=== PATIENT | female | born 1965 | race Caucasian/White ===

== ENCOUNTER → 2021-02-13 09:00 | Outpatient (BNVA) | payer BC, SELFPAY | PROVIDERS: PCP Family Medicine; Visit Provider Internal Medicine Gastroenterology ==

== ENCOUNTER 2021-04-11 08:27 | Day surgery (SDC) | payer BC, SELFPAY ==
[2021-04-11 08:47] VITALS: BP 102/66; PULSE 87; RESP 16; TEMP 36; O2SAT 99; BMI 27.4
[2021-04-11] MEDS: Lactated Ringers 1,000 ML 100 ML IVCONT (09:00)
--- NOTE | 2021-04-11 09:15 | P.CONAN_ITS ---
[facility] Social History Social History Patient Tobacco Use Status: Never used Tobacco Use of substances other than those prescribed or required for medical reasons: Yes Substance Use Type Other:: CBD/THC Substance Use Frequency: Daily Are you DNR?: No Advance Directives: Yes Advance Directives Information Provided: Yes Advance Directives on File: No Advance Directives Date on File: 04/11/21 Exam Exam Date and Time: April 11, 2021 0915 Height,Weight and Vital Signs: Height 5 ft 3 in Weight 70.307 kg Last Vital Signs Temp 96.8 F 04/11/21 08:47 Pulse 87 04/11/21 08:47 Resp 16 04/11/21 08:47 BP 102/66 04/11/21 08:47 Pulse Ox 99 04/11/21 08:47 Airway Mallampati Class: II TM Dist: >3cm Neck ROM: Full Heart: RRR Lungs: CTA Assessment and Plan Assessment Anesthesia Assessment: Anesthesia Plan Discussed and Chart Reviewed Final Anesthetic Review NPO: Yes (Sip with medicine) ASA Class: II Final Preanesthetic Review: No Changes in Pt Med Stat and Consent Obtain ed/Reviewed Patient Risk: Intermediate Procedure Risk: Intermediate Anesthetic Plan Anesthetic Plan: MAC: Disposition: Standard PACU
--- NOTE | 2021-04-11 09:30 | MHC.SHP ---
Pre-Procedural Eval Section B Chief Complaint: screening Relevant Family History (Specify if Yes): No Relevant Social History: Other (specify) (cbd) Present Medications: see Short Stay Collaborative assessment Medical History: Significant History (lymphocytic colitis, ) History of Previous Operations: No relevant previous surgery Allergies: Allergies Allergy/AdvReac Type Severity Reaction Status Date / Time No Known Allergies Allergy Verified 04/11/21 09:30 Review of Systems Sugical H&P ROS: Negative: Constitution, Cardiovascular, Respiratory, Neurological, Psychiatric, Hem-Onc, Allergic/Immunologic, Gastrointestinal, Genitourinary, Musculoskeletal, Integumentary, Endocrine and Eyes/Ears/Nose/Throat Exam Surgical H&P Exam: Normal: HEENT, Normal: Heart, Normal: Lungs, Normal: Extremities, Normal: Abdomen, Normal: Skin and Normal: Neurological Plan Diagnosis/Plan: Unchanged I have reviewed the history and physical and performed a pertinent physical examination on my patient. No changes have occurred unless specified.
--- NOTE | 2021-04-11 10:04 | PM.OP ---
Brief Operative Note Date of Service: 04/11/21 Pre-op diagnosis: colon screening Post-op diagnosis: same Procedure: see op note Surgeon: Tanner Garrett MD Anesthesia: MAC Was an Database Security Expert used for this Procedure?: No Estimated blood loss (mL): 0 Condition: stable Disposition: PACU
--- NOTE | 2021-04-11 10:04 | W.PM.OPN ---
Operative Note Operative Note Date of Service: 04/11/21 Narrative: Operative Information Procedure Description: Colonoscopy COLONOSCOPY Instrument: Olympus variable stiffness pediatric scope 190L Colonoscopy Monitoring: Vital signs and clinical assessment, continuous EKG monitoring, Pulse oximetry, Carbon Dioxide monitoring and blood pressure monitoring were done throughout the procedure. Colon withdrawal time was 13 minutes. Procedure: The patient was placed in the left lateral decubitis position and pre-procedure medications were administered. After a digital rectal examination of the ano-rectum, the video colonoscope was inserted into the rectum and advanced through the colon to the cecum/TI. The colonoscope was slowly withdrawn in a retrograde panoramic fashion and the colon mucosa was carefully examined including a retroflexed view of the rectum. Findings and interventions are described below. Procedure Difficulty:easy Findings: scattered wide mouthed diverticula in both right and left colon Terminal Ileum-normal Cecum:normal Ascending Colon: normal Transverse Colon -normal Descending Colon:normal Sigmoid Colon: normal Rectum: Retroflexion with small internal hemorrhoids, grade I, 10 mm sessile polyp removed with cold snare Anorectum - normal Colon preparation: [place] Bowel Preparation Scale Right colon; 2 Transverse colon: 1 Left colon; 2 (0 = Unprepared colon segment with mucosa not seen due to solid stool that cannot be cleared. 1 = Portion of mucosa of the colon segment seen, but other areas of the colon segment not well seen due to staining, residual stool and/or opaque liquid. 2 = Minor amount of residual staining, small fragments of stool and/or opaque liquid, but mucosa of colon segment seen well. 3 = Entire mucosa of colon segment seen well with no residual staining, small fragments of stool or opaque liquid) Impression and Post Procedure Diagnosis: polyp internal hemorrhoids diverticular disease Plan: High fiber diet leaflet Avoid straining at stool, epsom salts and sitz bath, anusol supps or cream as needed Repeat Colonoscopy in 5 years or earlier if clinically indicated, next time avoid nuts for 3 days before procedure at least Above findings were reviewed with the patient and relevant handouts were provided if indicated.
[2021-04-11 10:06] VITALS: BP 98/59; PULSE 73; RESP 16; TEMP 36.1; O2SAT 100
[2021-04-11 10:21] VITALS: BP 106/62; PULSE 72; RESP 18; O2SAT 100
== END 2021-04-11 10:50 | disposition home or self-care (01) ==
PROVIDERS: PCP Family Medicine; Visit Provider Internal Medicine Gastroenterology
PROC: 0DJD8ZZ Inspection of Lower Intestinal Tract, Via Natural or Artificial Opening Endoscopic (ICD-10-PCS; CPT 45378; principal; 2021-04-11 08:30)
DX: Z12.11 Encounter for screening for malignant neoplasm of colon (principal); Z83.71 Family history of colonic polyps; D12.8 Benign neoplasm of rectum; K57.30 Diverticulosis of large intestine without perforation or abscess without bleeding; K64.0 First degree hemorrhoids; K52.832 Lymphocytic colitis
CPT/HCPCS: 45385; 88305

== ENCOUNTER → 2021-05-01 09:23 | Outpatient (BNVA) | payer BC, SELFPAY | PROVIDERS: PCP Family Medicine; Visit Provider Internal Medicine Gastroenterology ==

== ENCOUNTER 2022-01-26 14:17 | Outpatient (REF) | payer OTHER, SELFPAY ==
--- NOTE | ~2022-01-26 | XR_ITS ---
EXAMINATION: XR KNEE, LEFT CLINICAL INFORMATION: Left knee pain COMPARISON: None TECHNIQUE: Four views of the left knee. FINDINGS: There is a left knee suprapatellar effusion present. The medial lateral joint space compartments are generally maintained. There is question of some narrowing of the patellofemoral joint with marginal spurring being present. No acute fracture or dislocation is seen. There is a 6 mm calcific density seen about the region of the popliteal fossa which may lie within a popliteal fossa cyst and appears to be superimposed on AP view over the medial joint space. XR/XR knee LT 4V IMPRESSION: No acute fracture or dislocation of the left knee. Suprapatellar effusion. Patellofemoral joint degenerative change. Calcification which may lie within a popliteal fossa cyst.
== END 2022-01-26 14:18 | disposition home or self-care (01) ==
LOC: HO.HMGCX 14:17
PROVIDERS: Visit Provider Physician Assistant
DX: M25.562 Pain in left knee (principal)
CPT/HCPCS: 73564

== ENCOUNTER 2024-01-19 08:44 | Outpatient (AMB) | payer OTHER, SELFPAY ==
--- NOTE | 2024-01-19 08:50 | MHC.OFFVIS ---
Intake Vital Signs 01/19/24 08:52 Height 5 ft 3 in Weight 165 lb 5.547 oz BMI 29.3 BP 99/64 Blood Pressure Location Lt brachial Position Sitting Pulse 75 Intake Visit Reasons: pt req appointment Intake Note: Adriana presents in the office as a requested appt. CC: She states that she is having concerns today. She thought she may have an ulcer but since she has found out that it was gluten effecting her. She wants to know when her next colonoscopy is as well. Allergies No Known Allergies Allergy (Verified 01/19/24 08:52) HPI pt req appointment HPI Details 58 yr old f being seen for f/u RECAP: I had seen her at [facility] where she had been dx with lymphocytic colitis, also treated for SIBO, concern she may have IBS at that time as well. She had also been recommended a FODMAP diet. mother had hx of polyps and she is worried about this colonoscopy--04/2021-- tubular adenoma removed, diverticulosis, INTERIM: She has flare ups of heart burn but since she stopped gluten she has felt an improvement, and no further attacks no dysphagia no chest pain no cough she reports mother had cancerous polyps removed and grand dad had crc so she is concerned about CRC and requesting earlier colonoscopy, she has also noted stool is softer than normal EXAM: GENERAL: The patient is well developed and nontoxic. VITAL SIGNS:see workflow HEENT: Nonicteric sclerae, PERRLA, EOMI. Oropharynx clear. Moist mucous membranes. Conjunctivae appear well perfused. No thyroid mass. CHEST: Chest wall is nontender. HEART: Regular rate and rhythm without murmurs. LUNGS: Clear to auscultation bilaterally. ABDOMEN: Soft, positive bowel sounds, nontender, no organomegaly.no flank tenderness SKIN: No rash, no excessive bruising, petechiae, or purpura. NEUROLOGIC: Cranial nerves II-XII intact without motor/sensory deficit. Psych: normal affect a/P: 1/ Heartburn, better with gluten avoidance 2/ altered bowel habit, Fh of polyps PLAN: 1/ EGD for heartburn, r/o mechanical or other causes of GERD, will send prn PPI 2/ repeat colonoscopy now due to altered bowel habit 3/ declines celiac blood work can do duodenal bx (milan with her hx of lymphocytic colitis) [facility] Medical History Anxiety and depression History of colitis Surgical History H/O colonoscopy Family History Father HTN (hypertension) Diabetes Maternal Grandfather Colon cancer Social History Household Members: None Alcohol intake: current Alcohol intake frequency: does not drink Patient Tobacco Use Status: Never used Tobacco Advance Directives Date on File: 04/11/21 Physical Exam Vital Signs: Last Vital Signs Pulse 75 01/19/24 08:52 BP 99/64 01/19/24 08:52 BMI result Body Mass Index 29.3 Assessment & Plan Assessment & Plan (1) FH: colon polyps: Code(s): Z83.71 - Family history of colonic polyps Plan: a/P: 1/ Heartburn, better with gluten avoidance 2/ altered bowel habit, Fh of polyps PLAN: 1/ EGD for heartburn, r/o mechanical or other causes of GERD, will send prn PPI 2/ repeat colonoscopy now due to altered bowel habit 3/ declines celiac blood work can do duodenal bx (milan with her hx of lymphocytic colitis) (2) Altered bowel habits: Code(s): R19.4 - Change in bowel habit Plan: a/P: 1/ Heartburn, better with gluten avoidance 2/ altered bowel habit, Fh of polyps PLAN: 1/ EGD for heartburn, r/o mechanical or other causes of GERD, will send prn PPI 2/ repeat colonoscopy now due to altered bowel habit 3/ declines celiac blood work can do duodenal bx (milan with her hx of lymphocytic colitis) (3) GERD (gastroesophageal reflux disease): Code(s): K21.9 - Gastro-esophageal reflux disease without esophagitis Plan: a/P: 1/ Heartburn, better with gluten avoidance 2/ altered bowel habit, Fh of polyps PLAN: 1/ EGD for heartburn, r/o mechanical or other causes of GERD, will send prn PPI 2/ repeat colonoscopy now due to altered bowel habit 3/ declines celiac blood work can do duodenal bx (milan with her hx of lymphocytic colitis) Medications: New sodium,potassium,mag sulfates 17.5-3.13-1.6 gram (Suprep Bowel Prep Kit) DILUTE; drink 1/2 at 6-8 pm and half at 11 PM- 1AM 354 mL 0RF Coding Level of Care Code Est Pt Level 3 (61603) Diagnoses FH: colon polyps Z83.71 Altered bowel habits R19.4 GERD (gastroesophageal reflux disease) K21.9
[2024-01-19 08:52] VITALS: BP 99/64; PULSE 75; BMI 29.3
== END 2024-01-19 09:15 | disposition home or self-care (01) ==
PROVIDERS: PCP Family Medicine; Visit Provider Internal Medicine Gastroenterology
DX: R19.4 Change in bowel habit (principal); Z83.719 Family history of colon polyps, unspecified; K21.9 Gastro-esophageal reflux disease without esophagitis
CPT/HCPCS: 99213

== ENCOUNTER → 2024-01-19 08:44 | Outpatient (BNVA) | payer OTHER, SELFPAY | PROVIDERS: PCP Family Medicine; Visit Provider Internal Medicine Gastroenterology ==

== ENCOUNTER 2024-06-30 13:25 | Outpatient (REF) | payer OTHER, SELFPAY ==
--- NOTE | ~2024-06-30 | XR_ITS ---
EXAMINATION: XR KNEE, LEFT CLINICAL INFORMATION: Left knee pain. COMPARISON: None available. TECHNIQUE: Three views of the left knee. FINDINGS: No fracture or malalignment. Moderate patellofemoral compartment osteoarthritis is characterized by joint space narrowing, marginal osteophytes, and articular sclerosis. There is degenerative remodeling of the proximal margin of the lateral trochlear facet. More mild osteoarthritis in the medial and lateral compartments. Small joint effusion. No acute soft tissue findings. XR/XR knee LT 3V IMPRESSION: 1. Moderate patellofemoral compartment osteoarthritis. More mild osteoarthritis in the medial and lateral compartments. 2. Small joint effusion. Electronically signed by: Blake Alaniz MD 07/23/2024 10:55 PM EDT
== END 2024-06-30 13:26 | disposition home or self-care (01) ==
LOC: HO.HOSX 13:25
PROVIDERS: Visit Provider Orthopaedic Surgery
DX: M25.562 Pain in left knee (principal); M17.12 Unilateral primary osteoarthritis, left knee
CPT/HCPCS: 20610; 73562; J1010

== ENCOUNTER 2024-06-30 13:45 | Outpatient (AMB) | payer OTHER, SELFPAY ==
--- NOTE | 2024-06-30 13:59 | MHC.OFFVIS ---
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 The patient describes her pain as sharp in nature. Her pain has gotten worse over the last few years in spite of continued non operative treatments. The patient states that she has gotten a cortisone injection every 3 months into her left knee over the last 2 years. The most recent injection gave her only temporary relief. She has not had a viscosupplementation injection. She has failed the last 3 months of conservative treatment including a home exercise program, cortisone injections, topical cream, Tylenol and anti-inflammatory medicines. At this point the patient's left knee pain is interfering with her activities of daily living and her ability to sleep well through the night. The patient wishes to hold off on surgery for as long as possible. Allergies No Known Allergies Allergy (Verified 06/30/24 14:09) Medication List - Last Reconciled 06/30/24 by Francesco Sullivan MD alprazolam 0.5 mg PO BEDTIME PRN bupropion HCl XL 150 mg PO DAILY estradiol 1 patch transdermal QWEEK levothyroxine 25 mcg PO QAM sodium,potassium,mag sulfates 17.5-3.13-1.6 gram (Suprep Bowel Prep Kit) DILUTE; drink 1/2 at 6-8 pm and half at 11 PM- 1AM [facility] Medical History Anxiety and depression History of colitis Surgical History H/O colonoscopy Family History Father HTN (hypertension) Diabetes Maternal Grandfather Colon cancer Social History (Updated 06/30/24 @ 14:05 by LUIS Ochoa) Household Members: None Alcohol intake: current Alcohol intake frequency: does not drink Patient Tobacco Use Status: Never used Tobacco Advance Directives Date on File: 04/11/21 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 Const Other: Well-nourished well-developed very friendly female awake alert and oriented x3 in no acute distress Extrem Other: Bilateral lower extremity examination shows good capillary refill, no skin lesions noted, normal sensation light touch Left knee examination shows a mild effusion, palpable crepitus with range of motion, pain with range of motion, range of motion from -3 degrees to 115 degrees, no instability Office Procedures Joint Injection/Aspiration Joint Injection/Aspiration Primary Site: left knee Prep: site was prepped using aseptic technique Injected: 40 mg of, DepoMedrol and 1% plain lidocaine Procedure: The patient tolerated the procedure well Coding - Large joint Procedure code (CPT) selection complete Results Reviewed Results Reviewed: X-rays of the patient's left knee show moderate to severe joint space narrowing most significant in the patellofemoral joint, subchondral sclerosis, no acute bony abnormalities Assessment & Plan Assessment & Plan (1) Osteoarthritis of left knee: Code(s): M17.12 - Unilateral primary osteoarthritis, left knee Category: Medical Plan Ms. Bright presents with progressively worsening left knee pain due to osteoarthritis. The risks and benefits of a cortisone injection were discussed at length with the patient. The patient wished to proceed. She tolerated the injection well. Because the patient's recent cortisone injections gave her only temporary relief I will see whether not her insurance company will cover a viscosupplementation injection for her left knee. I will see her back in 3 months' time. Feel free to call me at any time should questions regarding her orthopedic management arise. Thank you very much for asking me to see this very friendly patient. I spent 21 minutes in reviewing the patient's records and imaging studies, seeing the patient and documenting in the medical record. Orders: Orders XR knee LT 3V 06/30/24 M25.562 - Pain in left knee AMB Joint Injection/Aspiration 06/30/24 M17.12 - Unilateral primary osteoarthritis, left knee Coding Level of Care Code New Pt Level 3 (56177) Diagnoses Osteoarthritis of left knee M17.12 CPT Codes Coding - Large joint: 23813 - Large joint ([id number])
== END 2024-06-30 14:42 | disposition home or self-care (01) ==
PROVIDERS: PCP Family Medicine; Visit Provider Orthopaedic Surgery
DX: M17.12 Unilateral primary osteoarthritis, left knee (principal)
CPT/HCPCS: 20610; 99203

== ENCOUNTER 2024-08-25 08:40 | Day surgery (SDC) | payer OTHER, SELFPAY ==
[2024-08-20 14:31] VITALS: BMI 29.2
--- NOTE | 2024-08-25 09:35 | MHC.SHP ---
Pre-Procedural Eval Section A - 24 Hr Update-Section A only Date of Service: 08/25/24 Section B - Complete if H&P > 30 days Chief Complaint: GERD and colon screening Details of Present Illness: Maternal Grandfather Colon cance Relevant Family History (Specify if Yes): Yes Relevant Social History: None Present Medications: see Short Stay Collaborative assessment Medical History: Significant History (Hypothyroid Osteoarthritis GERD (gastroesophageal reflux disease) Anxiety and depression History of colitis) History of Previous Operations: Relevant previous surgery/procedure and date(s) (H/O colonoscopy) Allergies: Allergies Allergy/AdvReac Type Severity Reaction Status Date / Time No Known Allergies Allergy Verified 06/30/24 14:09 Review of Systems Sugical H&P ROS: Negative: Constitution, Cardiovascular, Respiratory, Neurological, Psychiatric, Hem-Onc, Allergic/Immunologic, Gastrointestinal, Genitourinary, Musculoskeletal, Integumentary, Endocrine and Eyes/Ears/Nose/Throat Exam Surgical H&P Exam: Normal: HEENT, Normal: Heart, Normal: Lungs, Normal: Extremities, Normal: Abdomen, Normal: Skin and Normal: Neurological Plan Diagnosis/Plan: Unchanged I have reviewed the history and physical and performed a pertinent physical examination on my patient. No changes have occurred unless specified. Time Spent With Patient Time: Total time managing care of this patient today ____ minutes.
--- NOTE | 2024-08-25 10:01 | HO.ANESPROP2 ---
HPI - Anesthesia Eval Consult details Narrative: endo and colon PMFSH Active Problems Active Problems: All Active Problems Osteoarthritis of left knee (Acute) Left knee pain (Acute) GERD (gastroesophageal reflux disease) (Acute) Altered bowel habits (Acute) FH: colon polyps (Acute) Past Medical History Medical History Hypothyroid Osteoarthritis GERD (gastroesophageal reflux disease) Anxiety and depression History of colitis Family History Family History Father HTN (hypertension) Diabetes Maternal Grandfather Colon cancer Family history of problems with anesthesia: No Surgical History Surgical History H/O colonoscopy History of Problems with Anesthesia: No Social History Social History Household Members: None Alcohol intake: current Alcohol intake frequency: does not drink Patient Tobacco Use Status: Never used Tobacco Advance Directives: No Advance Directives Information Provided: Yes Advance Directives Date on File: 04/11/21 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 Allergies Allergy/AdvReac Type Severity Reaction Status Date / Time No Known Allergies Allergy Verified 06/30/24 14:09 Home Medications ?Medication ?Instructions ?Recorded ?Confirmed ?Last Taken ?Type alprazolam 0.5 mg tablet 0.5 mg PO BEDTIME PRN Sleep 02/13/21 04/04/21 Unknown History estradiol 0.0375 mg/24 hr weekly 1 patch transdermal QWEEK 01/19/24 06/30/24 Unknown History transdermal patch bupropion HCl 150 mg 24 hr tablet, 150 mg PO DAILY 06/30/24 06/30/24 Unknown History extended release levothyroxine 25 mcg tablet 25 mcg PO QAM 06/30/24 06/30/24 Unknown History Exam Height,Weight and Vital Signs: Height 5 ft 3 in Weight 74.843 kg Airway Mallampati Class: II TM Dist: >3cm Neck ROM: Full Heart: rrr Lungs: cta Assessment and Plan Assessment Anesthesia Assessment: Anesthesia Plan Discussed Final Anesthetic Review Family History of Problems with Anesthesia: No History of Problems with Anesthesia: No NPO: Yes ASA Class: II Final Preanesthetic Review: No Changes in Pt Med Stat, Meds/Allgs Chart Reviewed, Consent Obtained/Reviewed and Anes Risks/Benef Reviewed Patient Risk: Low Procedure Risk: Low Anesthetic Plan Anesthetic Plan: MAC: Disposition: Standard PACU
[2024-08-25 10:02] VITALS: BP 105/56; PULSE 84; RESP 18; TEMP 37; O2SAT 96; BMI 28.3
--- NOTE | 2024-08-25 11:00 | HO.OPN-COLON ---
Colonoscopy Operative Note Operative Note Date of Service: 08/25/24 Narrative: Operative Information Procedure Description: EGD, Colonoscopy Indication: GERD, screening Anesthesia: MAC FLEXIBLE TRANSORAL UPPER GASTROINTESTINAL ENDOSCOPY AND COLONOSCOPY PROCEDURE NOTE UPPER ENDOSCOPY Consent: Indications for the procedure and potential complications of bleeding, perforation, reaction to medications and missed diagnosis were discussed with the patient and informed consent was obtained. Instrument: Olympus GIF H 190 J mid size upper endoscope Monitoring: Vital signs and clinical assessment, continuous EKG monitoring, Pulse oximetry, Carbon Dioxide monitoring and blood pressure monitoring were done throughout the procedure. Procedure: The patient was placed in the left lateral decubitis position and pre-procedure medications were administered and a bite block was placed. The endoscope was inserted into the mouth and advanced under direct vision to the third part of duodenum. A careful inspection was made as the upper endoscope was withdrawn including a retroflexed examination of the proximal stomach; Findings and interventions are described below. Findings: Larynx:normal Esophagus: GE junction at 38 cm, diaphragm hiatus at 38 cm, mild esophagitis at GEJ, bx taken from here and from distal and proximal esophagus Stomach: Normal mucosa. Biopsies were obtained. Grade 2 flap valve on retroflexed examination of the cardia. Duodenum: bulbar duodenitis and granularity, bx taken Intervention: Biopsies as noted above, COLONOSCOPY Instrument: Olympus variable stiffness pediatric scope 190L Colonoscopy Monitoring: Vital signs and clinical assessment, continuous EKG monitoring, Pulse oximetry, Carbon Dioxide monitoring and blood pressure monitoring were done throughout the procedure. Colon withdrawal time was 8 minutes. Procedure: The patient was placed in the left lateral decubitis position and pre-procedure medications were administered. After a digital rectal examination of the ano-rectum, the video colonoscope was inserted into the rectum and advanced through the colon to the cecum/TI. The colonoscope was slowly withdrawn in a retrograde panoramic fashion and the colon mucosa was carefully examined including a retroflexed view of the rectum. Findings and interventions are described below. Procedure Difficulty:moderate Findings: Terminal Ileum-normal, bx taken Cecum:normal Ascending Colon: granular mucosa, bx taken, few scattered tics noted, 4-6 mm sessile polyp removed with cold snare Transverse Colon -normal Descending Colon:normal Sigmoid Colon: mild diverticulosis , random bx taken Rectum: Retroflexion with small internal hemorrhoids, grade I Anorectum - normal Colon preparation: [place] Bowel Preparation Scale Right colon; 3 Transverse colon: 3 Left colon; 3 (0 = Unprepared colon segment with mucosa not seen due to solid stool that cannot be cleared. 1 = Portion of mucosa of the colon segment seen, but other areas of the colon segment not well seen due to staining, residual stool and/or opaque liquid. 2 = Minor amount of residual staining, small fragments of stool and/or opaque liquid, but mucosa of colon segment seen well. 3 = Entire mucosa of colon segment seen well with no residual staining, small fragments of stool or opaque liquid) Impression and Post Procedure Diagnosis: Endoscopy Findings: duodenitis mild esophagitis Colonoscopy Findings: diverticulosis colon polyp internal hemorrhoids Plan: Await Pathology results Repeat Colonoscopy in 5-6 years due to FH of colonic polyps High fiber diet leaflet avoid straining at stool, epsom salts and sitz bath, anusol supps or cream Above findings were reviewed with the patient and relevant handouts were provided if indicated.
[2024-08-25 11:28] VITALS: BP 91/61; PULSE 79; RESP 16; TEMP 36.1; O2SAT 99
[2024-08-25 11:44] VITALS: BP 111/68; PULSE 80; RESP 17; TEMP 36.7; O2SAT 99
== END 2024-08-25 12:04 | disposition home or self-care (01) ==
PROVIDERS: PCP Nurse Practitioner Family; Visit Provider Internal Medicine Gastroenterology
PROC: (CPT 45385; principal; 2024-08-25 10:50)
DX: Z12.11 Encounter for screening for malignant neoplasm of colon (principal); Z83.719 Family history of colon polyps, unspecified; K63.5 Polyp of colon; K57.30 Diverticulosis of large intestine without perforation or abscess without bleeding; K64.0 First degree hemorrhoids; K21.9 Gastro-esophageal reflux disease without esophagitis; K20.80 Other esophagitis without bleeding; K29.80 Duodenitis without bleeding; Z87.19 Personal history of other diseases of the digestive system; K44.9 Diaphragmatic hernia without obstruction or gangrene; E03.9 Hypothyroidism, unspecified; F41.8 Other specified anxiety disorders; Z79.899 Other long term (current) drug therapy
CPT/HCPCS: 45385; 45380; 43239; 88305; 88313; 88342; J1100; J1596; J2003; J2704

== ENCOUNTER → 2024-08-25 08:40 | Outpatient (BNV) | payer OTHER, SELFPAY | PROVIDERS: PCP Nurse Practitioner Family; Visit Provider Internal Medicine Gastroenterology | DX: Z12.11 Encounter for screening for malignant neoplasm of colon (principal); K57.90 Diverticulosis of intestine, part unspecified, without perforation or abscess without bleeding; K63.5 Polyp of colon; K64.0 First degree hemorrhoids; K21.00 Gastro-esophageal reflux disease with esophagitis, without bleeding; K29.80 Duodenitis without bleeding | CPT/HCPCS: 43239; 45385 ==

== ENCOUNTER 2024-10-05 15:03 | Outpatient (AMB) | payer OTHER, SELFPAY ==
--- NOTE | 2024-10-05 15:27 | A.OFFVIS_ITS ---
Vital Signs 10/05/24 15:34 Height 5 ft 3 in Intake Visit Reasons: Euflexxa left knee #1 Intake Note: Adriana is a 59 year old female who presents with complaints of progressively worsening left knee pain. She describes her pain as sharp in nature. She has had cortisone injections in the past which gave her minimal relief. She has done physical therapy exercises which aggravated her pain. She has also tried Tylenol and anti-inflammatory medicines which gave her minimal relief. She wishes to hold off on surgery for as long as possible. Allergies No Known Allergies Allergy (Verified 10/05/24 15:34) Medication List - Last Reconciled 10/06/24 by Francesco Sullivan MD alprazolam 0.5 mg PO BEDTIME PRN bupropion HCl XL 150 mg PO DAILY estradiol 1 patch transdermal QWEEK levothyroxine 25 mcg PO QAM sodium,potassium,mag sulfates 17.5-3.13-1.6 gram (Suprep Bowel Prep Kit) DILUTE; drink 1/2 at 6-8 pm and half at 11 PM- 1AM [facility] Medical History Hypothyroid Osteoarthritis GERD (gastroesophageal reflux disease) Anxiety and depression History of colitis Surgical History H/O colonoscopy Family History Father HTN (hypertension) Diabetes Maternal Grandfather Colon cancer Social History Household Members: None Are you a primary health care / medical job titles to a significant other at home: No Do you presently have visiting nurse or other home services: No Alcohol intake: current Alcohol intake frequency: holidays/special occasions only Patient Tobacco Use Status: Never used Tobacco Advance Directives Date on File: 04/11/21 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 Const Other: Well-nourished well-developed very friendly female awake alert and oriented x3 in no acute distress Extrem Other: Bilateral lower extremity examination shows good capillary refill, no skin lesions noted, normal sensation light touch Left knee examination shows a mild effusion, palpable crepitus with range of motion, pain with range of motion, no instability Office Procedures AMB Joint Injection/Aspiration Joint Injection/Aspiration Primary Site: left knee Prep: site was prepped using aseptic technique Injected: 20 mg of (Euflexxa viscosupplementation) and 1% plain lidocaine Procedure: The patient tolerated the procedure well Coding 56947 - Large joint Procedure code (CPT) selection complete Results Reviewed Results Reviewed: X-rays of the patient's left knee show joint space narrowing, subchondral sclerosis, no acute bony abnormalities Assessment & Plan Assessment & Plan (1) Osteoarthritis of left knee: Code(s): M17.12 - Unilateral primary osteoarthritis, left knee Category: Medical Plan Ms. Bright presents with left knee pain due to osteoarthritis. The risks and benefits of a series of Euflexxa viscosupplementation injections were discussed at length with the patient. The patient wished to proceed. She tolerated the 1st injection well. Prior to the injection I aspirated 2 cc of clear fluid from her knee. She will continue with her activity modifications. She will follow up next week as scheduled. Feel free to call me at any time should questions regarding her orthopedic management arise. I spent 21 minutes in reviewing the patient's records and imaging studies, seeing the patient and documenting in the medical record. Orders: Orders AMB Joint Injection/Aspiration 10/05/24 M17.12 - Unilateral primary osteoarthritis, left knee Coding Level of Care Code Est Pt Level 3 (75044) Complex EM visit Add On G2211 Diagnoses Osteoarthritis of left knee M17.12 CPT Codes Coding - 14698 Large joint: 36534 - Large joint ([id number])
== END 2024-10-05 15:55 | disposition home or self-care (01) ==
PROVIDERS: PCP Family Medicine; Visit Provider Orthopaedic Surgery
DX: M17.12 Unilateral primary osteoarthritis, left knee (principal)
CPT/HCPCS: 20610; 99213

== ENCOUNTER → 2024-10-05 15:03 | Outpatient (BNVA) | payer OTHER, SELFPAY | PROVIDERS: PCP Family Medicine; Visit Provider Orthopaedic Surgery | DX: M17.12 Unilateral primary osteoarthritis, left knee (principal) | CPT/HCPCS: 20610; J2003; J7323 ==

== ENCOUNTER 2024-10-12 14:59 | Outpatient (AMB) | payer OTHER, SELFPAY ==
--- NOTE | 2024-10-12 15:08 | A.OFFVIS_ITS ---
Vital Signs 10/12/24 15:11 Height 5 ft 3 in Weight 160 lb BMI 28.3 Intake Visit Reasons: Euflexxa left knee #2 Intake Note: Adriana is a 59 year old female who presents for follow-up of her left knee pain. She states that she got mild relief from the 1st Euflexxa injection that she was given at her last visit. She continues with her activity modifications. Allergies No Known Allergies Allergy (Verified 10/12/24 15:11) Medication List - Last Reconciled 10/13/24 by Francesco Sullivan MD alprazolam 0.5 mg PO BEDTIME PRN bupropion HCl XL 150 mg PO DAILY estradiol 1 patch transdermal QWEEK levothyroxine 25 mcg PO QAM sodium,potassium,mag sulfates 17.5-3.13-1.6 gram (Suprep Bowel Prep Kit) DILUTE; drink 1/2 at 6-8 pm and half at 11 PM- 1AM [facility] Medical History Hypothyroid Osteoarthritis GERD (gastroesophageal reflux disease) Anxiety and depression History of colitis Surgical History H/O colonoscopy Family History Father HTN (hypertension) Diabetes Maternal Grandfather Colon cancer Social History Household Members: None Are you a primary hospice care transitions coordinator to a significant other at home: No Do you presently have visiting nurse or other home services: No Alcohol intake: current Alcohol intake frequency: holidays/special occasions only Patient Tobacco Use Status: Never used Tobacco Advance Directives Date on File: 04/11/21 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 Vital Signs: BMI result Body Mass Index 28.3 Extrem Other: Left knee examination shows a minimal effusion, palpable crepitus with range of motion, pain with range of motion, no instability Office Procedures AMB Joint Injection/Aspiration Joint Injection/Aspiration Primary Site: left knee Prep: site was prepped using aseptic technique Injected: 20 mg of (Euflexxa viscosupplementation) and 1% plain lidocaine Procedure: The patient tolerated the procedure well Coding 46721 - Large joint Procedure code (CPT) selection complete Results Reviewed Results Reviewed: X-rays of the patient's left knee taken previously show joint space narrowing, subchondral sclerosis, no acute bony abnormalities Assessment & Plan Assessment & Plan (1) Osteoarthritis of left knee: Code(s): M17.12 - Unilateral primary osteoarthritis, left knee Category: Medical Plan Ms. Bright presents with left knee pain due to osteoarthritis. The risks and benefits of the 2nd Euflexxa viscosupplementation injection were discussed at length with the patient. The patient wished to proceed. She tolerated the injection well. Prior to the injection I aspirated 3 cc of clear fluid from her left knee. The patient will follow up next week as scheduled. Feel free to call me at any time should questions regarding her orthopedic management arise. Orders: Orders AMB Joint Injection/Aspiration 10/12/24 M17.12 - Unilateral primary osteoarthritis, left knee Coding Level of Care Code Procedure Only Diagnoses Osteoarthritis of left knee M17.12 CPT Codes Coding - 19357 Large joint: 34665 - Large joint ([id number])
[2024-10-12 15:11] VITALS: BMI 28.3
== END 2024-10-12 15:44 | disposition home or self-care (01) ==
PROVIDERS: PCP Nurse Practitioner Family; Visit Provider Orthopaedic Surgery
DX: M17.12 Unilateral primary osteoarthritis, left knee (principal)
CPT/HCPCS: 20610

== ENCOUNTER → 2024-10-12 14:59 | Outpatient (BNVA) | payer OTHER, SELFPAY | PROVIDERS: PCP Nurse Practitioner Family; Visit Provider Orthopaedic Surgery | DX: M17.12 Unilateral primary osteoarthritis, left knee (principal) | CPT/HCPCS: 20610; J2003; J7323 ==

== ENCOUNTER 2024-10-20 15:00 | Outpatient (AMB) | payer OTHER, SELFPAY ==
--- NOTE | 2024-10-20 15:05 | A.OFFVIS_ITS ---
Vital Signs 10/20/24 15:10 Height 5 ft 3 in Weight 160 lb BMI 28.3 Intake Visit Reasons: Euflexxa left knee #3 Intake Note: Adriana is a 59 year old female who presents for follow-up of her left knee pain. She states that she has gotten mild relief from the 1st 2 Euflexxa injections. She states that her left knee still feels ?stiff?. Allergies No Known Allergies Allergy (Verified 10/20/24 15:10) Medication List - Last Reconciled 10/20/24 by Francesco Sullivan MD alprazolam 0.5 mg PO BEDTIME PRN bupropion HCl XL 150 mg PO DAILY estradiol 1 patch transdermal QWEEK levothyroxine 25 mcg PO QAM sodium,potassium,mag sulfates 17.5-3.13-1.6 gram (Suprep Bowel Prep Kit) DILUTE; drink 1/2 at 6-8 pm and half at 11 PM- 1AM [facility] Medical History Hypothyroid Osteoarthritis GERD (gastroesophageal reflux disease) Anxiety and depression History of colitis Surgical History H/O colonoscopy Family History Father HTN (hypertension) Diabetes Maternal Grandfather Colon cancer Social History Household Members: None Are you a primary medicare coordinator to a significant other at home: No Do you presently have visiting nurse or other home services: No Alcohol intake: current Alcohol intake frequency: holidays/special occasions only Patient Tobacco Use Status: Never used Tobacco Advance Directives Date on File: 04/11/21 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 Bright presents with left knee pain due to degenerative joint disease. The risks and benefits of a 3rd Euflexxa viscosupplementation injection were discussed at length with the patient. The patient wished to proceed. She tolerated the injection well. She will continue with her activity modifications. She will contact me prior to her follow-up appointment in 3 months should any questions or concerns arise. Feel free to call me at any time should questions regarding orthopedic management arise. Orders: Orders AMB Joint Injection/Aspiration Today M17.12 - Unilateral primary osteoarthritis, left knee Coding Level of Care Code Procedure Only Diagnoses Osteoarthritis of left knee M17.12
[2024-10-20 15:10] VITALS: BMI 28.3
== END 2024-10-20 15:33 | disposition home or self-care (01) ==
PROVIDERS: PCP Nurse Practitioner Family; Visit Provider Orthopaedic Surgery
DX: M17.12 Unilateral primary osteoarthritis, left knee (principal)
CPT/HCPCS: 20610

== ENCOUNTER → 2024-10-20 15:00 | Outpatient (BNVA) | payer OTHER, SELFPAY | PROVIDERS: PCP Nurse Practitioner Family; Visit Provider Orthopaedic Surgery | DX: M17.12 Unilateral primary osteoarthritis, left knee (principal) | CPT/HCPCS: 20610; J2003; J7323 ==

== ENCOUNTER 2025-01-18 15:02 | Outpatient (AMB) | payer OTHER, SELFPAY ==
--- NOTE | 2025-01-18 15:13 | A.OFFVIS_ITS ---
Vital Signs 01/18/25 15:18 Height 5 ft 3 in Weight 160 lb BMI 28.3 Intake Visit Reasons: Left knee pain Intake Note: Adriana is a 59 year old female who presents with complaints of progressively worsening left knee pain. She describes her pain as sharp in nature. Her pain has gotten worse over the last few months in spite of continued non operative treatments. She has had viscosupplementation injections which gave her fairly good relief. She wishes to hold off on surgery for as long as possible. She has tried Tylenol and anti-inflammatory medicines which gave her minimal relief. She has had cortisone injections which gave her mild relief. Allergies No Known Allergies Allergy (Verified 01/18/25 15:17) Medication List - Last Reconciled 01/18/25 by Francesco Sullivan MD alprazolam 0.5 mg PO BEDTIME PRN bupropion HCl XL 150 mg PO DAILY estradiol 1 patch transdermal QWEEK levothyroxine 25 mcg PO QAM sodium,potassium,mag sulfates 17.5-3.13-1.6 gram (Suprep Bowel Prep Kit) DILUTE; drink 1/2 at 6-8 pm and half at 11 PM- 1AM [facility] Medical History Hypothyroid Osteoarthritis GERD (gastroesophageal reflux disease) Anxiety and depression History of colitis Surgical History H/O colonoscopy Family History Father HTN (hypertension) Diabetes Maternal Grandfather Colon cancer Social History Household Members: None Are you a primary patient centered care specialist to a significant other at home: No Do you presently have visiting nurse or other home services: No Alcohol intake: current Alcohol intake frequency: holidays/special occasions only Patient Tobacco Use Status: Never used Tobacco Advance Directives Date on File: 04/11/21 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 Vital Signs: BMI result Body Mass Index 28.3 Const Other: Well-nourished well-developed very friendly female awake alert and oriented x3 in no acute distress Extrem Other: Bilateral lower extremity examination shows good capillary refill, no skin lesions noted, normal sensation light touch Left knee examination shows a minimal effusion, palpable crepitus with range of motion, pain with range of motion, no instability Office Procedures AMB Joint Injection/Aspiration Joint Injection/Aspiration Primary Site: left knee Prep: site was prepped using aseptic technique Injected: 40 mg of, DepoMedrol and 1% plain lidocaine Procedure: The patient tolerated the procedure well Coding - Large joint Procedure code (CPT) selection complete Results Reviewed Results Reviewed: X-rays of the patient's left knee show joint space narrowing, subchondral sclerosis, no acute abnormalities Assessment & Plan Assessment & Plan (1) Osteoarthritis of left knee: Code(s): M17.12 - Unilateral primary osteoarthritis, left knee Category: Medical (2) Left knee pain: Code(s): M25.562 - Pain in left knee Category: Medical Plan Ms. Bright presents with left knee pain due to osteoarthritis. The risks and benefits of a left knee cortisone injection were discussed at length with the patient. The patient wished to proceed. She tolerated the injection well. If she does not get lasting relief from the cortisone injection therapy I will see whether or not her insurance company will cover a another series of Euflexxa viscosupplementation injections. I will see her back at that time. Feel free to call me at any time should questions regarding her orthopedic management arise. I spent 21 minutes in reviewing the patient's records and imaging studies, seeing the patient and documenting in the medical record. Orders: Orders AMB Joint Injection/Aspiration Today M17.12 - Unilateral primary osteoarthritis, left knee Coding Level of Care Code Est Pt Level 3 (20827) Complex EM visit Add On G2211 Diagnoses Osteoarthritis of left knee M17.12 Left knee pain M25.562 CPT Codes Coding - Large joint: 57370 - Large joint ([id number])
[2025-01-18 15:18] VITALS: BMI 28.3
--- OUTSIDE RECORDS SUMMARY | 2025-01-18 18:23 | XMS_ITS | Patient Health Record ---
Author Organization [facility] Address [address] [place] [address] Care Team Providers Care Bond Underwriter Name Role Phone NO PCP, NONE Primary Care Provider Unavailabl e REASON FOR REFERRAL No Information MEDICATIONS Medication SIG (Take, Route, Frequency, Duration) Notes Start Date End Date Status None as reported by patient/historian Active SOCIAL HISTORY Tobacco Use: Social History Observation Description Date Details (start date - stop date) Never Smoker NA - NA Sex Assigned At : Social History Observation Description Sex Assigned At Unknown Tobacco Use/Smoking Question Answer Notes Are you a nonsmoker * PLAN OF TREATMENT No Information Insurance Providers Payer Name Payer Address Payer Phone Subscriber Number Group Number Insured Name Patient Relationship to Insured Coverage Start Date Coverage End Date [employer] [address] [place] [phone] [id number] BroderickAdriana Self - patient is the insured MEDICAL (GENERAL) HISTORY Medical History History ICD Code History of : No Chronic health problems* Surgical History Surgery Date(Month/Year) Hospitalization History Reason Date(Month/Year)
== END 2025-01-18 15:37 | disposition home or self-care (01) ==
PROVIDERS: PCP Nurse Practitioner Family; Visit Provider Orthopaedic Surgery
DX: M17.12 Unilateral primary osteoarthritis, left knee (principal)
CPT/HCPCS: 20610; 99213

== ENCOUNTER → 2025-01-18 15:07 | Outpatient (BNVA) | payer OTHER, SELFPAY | PROVIDERS: PCP Nurse Practitioner Family; Visit Provider Orthopaedic Surgery | DX: M17.12 Unilateral primary osteoarthritis, left knee (principal) | CPT/HCPCS: 20610; J1010; J2003 ==

== ENCOUNTER 2025-04-12 15:00 | Outpatient (AMB) | payer OTHER, SELFPAY ==
--- NOTE | 2025-04-12 15:06 | MHC.OFFVIS ---
Intake Visit Reasons: INJ-LT knee Euflexxa #1 Intake Note: Adriana is a 59 year old female who presents today for her first dose of left knee Euflexxa. She describes her left knee pain as sharp in nature. She has tried Tylenol and anti-inflammatory medicines which gave her minimal relief. She has also done physical therapy exercises which aggravated her pain. She wishes to hold off on surgery if at all possible. Allergies No Known Allergies Allergy (Verified 04/12/25 15:12) Medication List - Last Reconciled 04/12/25 by Francesco Sullivan MD alprazolam 0.5 mg PO BEDTIME PRN bupropion HCl XL 150 mg PO DAILY estradiol 1 patch transdermal QWEEK levothyroxine 25 mcg PO QAM [facility] Medical History Hypothyroid Osteoarthritis GERD (gastroesophageal reflux disease) Anxiety and depression History of colitis Surgical History H/O colonoscopy Family History Father HTN (hypertension) Diabetes Maternal Grandfather Colon cancer Social History Household Members: None Are you a primary student career development specialist to a significant other at home: No Do you presently have visiting nurse or other home services: No Alcohol intake: current Alcohol intake frequency: holidays/special occasions only Patient Tobacco Use Status: Never used Tobacco Advance Directives Date on File: 04/11/21 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 Const Other: Well-nourished well-developed very friendly female awake alert and oriented x3 in no acute distress Extrem Other: Bilateral lower extremity examination shows good capillary refill, no skin lesions noted, normal sensation light touch Left knee examination shows a minimal effusion, palpable crepitus with range of motion, pain with range of motion, no instability Office Procedures AMB Joint Injection/Aspiration Joint Injection/Aspiration Primary Site: left knee Prep: site was prepped using aseptic technique Injected: 20 mg of (Euflexxa viscosupplementation) and 1% plain lidocaine Procedure: The patient tolerated the procedure well Coding 72934 - Large joint Procedure code (CPT) selection complete Results Reviewed Results Reviewed: X-rays of the patient's left knee taken previously show joint space narrowing, subchondral sclerosis, no acute bony abnormalities Assessment & Plan Assessment & Plan (1) Osteoarthritis of left knee: Code(s): M17.12 - Unilateral primary osteoarthritis, left knee Category: Medical Plan Ms. Bright presents with left knee pain due to osteoarthritis. The risks and benefits of a series of 3 Euflexxa viscosupplementation injections were discussed at length with the patient. The patient wished to proceed. She tolerated the 1st injection well. She will follow up next week as scheduled for her 2nd injection. Feel free to call me at any time should questions regarding her orthopedic management arise. I spent 22 minutes in reviewing the patient's records and imaging studies, seeing the patient and documenting in the medical record. Orders: Orders AMB Joint Injection/Aspiration Today M17.12 - Unilateral primary osteoarthritis, left knee Coding Level of Care Code Est Pt Level 3 (07863) Complex EM visit Add On G2211 Diagnoses Osteoarthritis of left knee M17.12 CPT Codes Coding - 46947 Large joint: 68983 - Large joint ([id number])
--- OUTSIDE RECORDS SUMMARY | 2025-04-12 16:40 | XMS_ITS | Continuity of Care Document ---
Author Organization [employer] [facility] Address [address] [address] Insurance Providers Payer Plan Claims Address Claims Phone Policy Number Group Number Relation Employer Guarantor Name Guarantor Guarantor Address Guarantor Phone [employer] [address] [address], [place] [id number] Self Adriana Kaila [address] [place] [id number] Problems Condition ICD9 code ICD10 code SNOMED code Start Date End Date S tatus Encounter for screening for other metabolic disorders Z13.228 Results No Results Allergies, adverse reactions, alerts No known allergies and adverse reactions Medications No administered medications reported Vital Signs No vital signs reported Social History No smoking Hx information available
== END 2025-04-12 15:40 | disposition home or self-care (01) ==
LOC: HO.HOS 15:01
PROVIDERS: PCP Nurse Practitioner Family; Visit Provider Orthopaedic Surgery
DX: M17.12 Unilateral primary osteoarthritis, left knee (principal)
CPT/HCPCS: 20610; 99213

== ENCOUNTER → 2025-04-12 15:00 | Outpatient (BNVA) | payer OTHER, SELFPAY | PROVIDERS: PCP Nurse Practitioner Family; Visit Provider Orthopaedic Surgery | DX: M17.12 Unilateral primary osteoarthritis, left knee (principal) | CPT/HCPCS: 20610; J2003; J7323 ==

== ENCOUNTER 2025-04-20 15:02 | Outpatient (AMB) | payer OTHER, SELFPAY ==
[2025-04-20 15:09] VITALS: BMI 28.3
--- NOTE | 2025-04-20 15:09 | MHC.OFFVIS ---
Vital Signs 04/20/25 15:09 Height 5 ft 3 in Weight 160 lb BMI 28.3 Intake Visit Reasons: INJ-LT knee Euflexxa #2 Intake Note: Adriana is a 59 year old female who presents today for her second dose of left knee Euflexxa injections. The patient states that she got mild relief from the 1st injection. Allergies No Known Allergies Allergy (Verified 04/20/25 15:09) Medication List - Last Reconciled 04/20/25 by Francesco Sullivan MD alprazolam 0.5 mg PO BEDTIME PRN bupropion HCl XL 150 mg PO DAILY estradiol 1 patch transdermal QWEEK [facility] History Hypothyroid Osteoarthritis GERD (gastroesophageal reflux disease) Anxiety and depression History of colitis Surgical History H/O colonoscopy Family History Father HTN (hypertension) Diabetes Maternal Grandfather Colon cancer Social History Household Members: None Are you a primary pet care assistant to a significant other at home: No Do you presently have visiting nurse or other home services: No Alcohol intake: current Alcohol intake frequency: holidays/special occasions only Patient Tobacco Use Status: Never used Tobacco Advance Directives Date on File: 04/11/21 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 Vital 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: BMI result Body Mass Index 28.3 Extrem Other: Left knee examination shows a mild effusion, palpable crepitus with range of motion, pain with range of motion, no instability Office Procedures AMB Joint Injection/Aspiration Joint Injection/Aspiration Primary Site: left knee Prep: site was prepped using aseptic technique Injected: 20 mg of (Euflexxa viscosupplementation) and 1% plain lidocaine Procedure: The patient tolerated the procedure well Coding 02001 - Large joint Procedure code (CPT) selection complete Results Reviewed Results Reviewed: X-rays of the patient's left knee taken previously show joint space narrowing, subchondral sclerosis, no acute bony abnormalities Assessment & Plan Assessment & Plan (1) Osteoarthritis of left knee: Code(s): M17.12 - Unilateral primary osteoarthritis, left knee Category: Medical Plan Ms. Bright presents with left knee pain due to osteoarthritis. The risks and benefits of a 2nd Euflexxa injection were discussed at length with the patient. The patient wished to proceed. She tolerated the injection well. She will continue with her home exercise program. She will follow up for her 3rd injection as scheduled. Feel free to call me at any time should questions regarding her orthopedic management arise. Orders: Orders AMB Joint Injection/Aspiration Today M17.12 - Unilateral primary osteoarthritis, left knee Coding Level of Care Code Procedure Only Diagnoses Osteoarthritis of left knee M17.12 CPT Codes Coding - 53753 Large joint: 62970 - Large joint ([id number])
--- OUTSIDE RECORDS SUMMARY | 2025-04-20 17:19 | XMS_ITS | Continuity of Care Document ---
Author Organization [email or web address] Address [address] [address] Insurance Providers Payer Plan Claims Address Claims Phone Policy Number Group Number Relation Employer Guarantor Name Guarantor Guarantor Address Guarantor Phone [employer] [id number] , [place] [address] tel:[phone] Problems Condition ICD9 code ICD10 code SNOMED code Start Date End Date S tatus Encounter for screening for other metabolic disorders Z13.228 Results No Results Allergies, adverse reactions, alerts No known allergies and adverse reactions Medications No administered medications reported Vital Signs No vital signs reported Social History No smoking Hx information available
== END 2025-04-20 15:37 | disposition home or self-care (01) ==
LOC: HO.HOS 15:03
PROVIDERS: PCP Nurse Practitioner Family; Visit Provider Orthopaedic Surgery
DX: M17.12 Unilateral primary osteoarthritis, left knee (principal)
CPT/HCPCS: 20610

== ENCOUNTER → 2025-04-20 15:02 | Outpatient (BNVA) | payer OTHER, SELFPAY | PROVIDERS: PCP Nurse Practitioner Family; Visit Provider Orthopaedic Surgery | DX: M17.12 Unilateral primary osteoarthritis, left knee (principal); M25.462 Effusion, left knee | CPT/HCPCS: 20610; J2003; J7323 ==

== ENCOUNTER 2025-04-26 15:01 | Outpatient (AMB) | payer OTHER, SELFPAY ==
[2025-04-26 15:05] VITALS: BMI 28.3
--- NOTE | 2025-04-26 15:05 | A.OFFVIS_ITS ---
Vital Signs 04/26/25 15:05 Height 5 ft 3 in Weight 160 lb BMI 28.3 Intake Visit Reasons: inj-Lt knee Euflexxa #3 Intake Note: Adriana is a 59 year old female who presents for her third dose of her left knee Euflexxa gel injections. She states that she has gotten mild relief from the 1st 2 injections. She continues with her home exercise program. Allergies No Known Allergies Allergy (Verified 04/26/25 15:06) Medication List - Last Reconciled 04/27/25 by Francesco Sullivan MD alprazolam 0.5 mg PO BEDTIME PRN bupropion HCl XL 150 mg PO DAILY celecoxib (Celebrex) 200 mg PO DAILY PRN estradiol 1 patch transdermal QWEEK levothyroxine 25 mcg PO QAM [facility] Medical History Hypothyroid Osteoarthritis GERD (gastroesophageal reflux disease) Anxiety and depression History of colitis Surgical History H/O colonoscopy Family History Father HTN (hypertension) Diabetes Maternal Grandfather Colon cancer Social History Household Members: None Are you a primary rn wound care to a significant other at home: No Do you presently have visiting nurse or other home services: No Alcohol intake: current Alcohol intake frequency: holidays/special occasions only Patient Tobacco Use Status: Never used Tobacco Advance Directives Date on File: 04/11/21 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 Vital Signs: BMI result Body Mass Index 28.3 Extrem Other: Left knee examination shows a minimal effusion, palpable crepitus with range of motion, pain with range of motion, no instability Office Procedures AMB Joint Injection/Aspiration Joint Injection/Aspiration Primary Site: left knee Prep: site was prepped using aseptic technique Injected: 20 mg of (Euflexxa viscosupplementation) and 1% plain lidocaine Procedure: The patient tolerated the procedure well Coding 65282 - Large joint Procedure code (CPT) selection complete Results Reviewed Results Reviewed: X-rays of the patient's left knee show joint space narrowing, subchondral sclerosis, no acute bony abnormalities Assessment & Plan Assessment & Plan (1) Osteoarthritis of left knee: Code(s): M17.12 - Unilateral primary osteoarthritis, left knee Category: Medical Plan Ms. Bright presents with left knee pain due to osteoarthritis. The risks and benefits of a 3rd Euflexxa viscosupplementation injection were discussed at length with the patient. The patient wished to proceed. She tolerated the injection well. She will continue with her home exercise program. She will contact me prior to her follow-up appointment in 3 months should any questions or concerns arise. Feel free to call me at any time should questions regarding her orthopedic management arise. Orders: Orders AMB Joint Injection/Aspiration 04/26/25 M17.12 - Unilateral primary osteoarthritis, left knee Coding Level of Care Code Procedure Only Diagnoses Osteoarthritis of left knee M17.12 CPT Codes Coding - 54679 Large joint: 83853 - Large joint ([id number])
== END 2025-04-26 15:36 | disposition home or self-care (01) ==
LOC: HO.HOS 15:02
PROVIDERS: PCP Nurse Practitioner Family; Visit Provider Orthopaedic Surgery
DX: M17.12 Unilateral primary osteoarthritis, left knee (principal)
CPT/HCPCS: 20610

== ENCOUNTER → 2025-04-26 15:01 | Outpatient (BNVA) | payer OTHER, SELFPAY | PROVIDERS: PCP Nurse Practitioner Family; Visit Provider Orthopaedic Surgery | DX: M17.12 Unilateral primary osteoarthritis, left knee (principal) | CPT/HCPCS: 20610; J2003; J7323 ==

== ENCOUNTER 2025-10-25 14:56 | Outpatient (AMB) | payer OTHER, SELFPAY ==
--- NOTE | 2025-10-25 15:21 | MHC.OFFVIS ---
Intake Visit Reasons: INJ- Lt knee Euflexxa #1 Intake Note: Adriana is a 60 year old female who presents with complaints of left knee pain. She describes her pain as sharp in nature. She has failed the last 3 months of conservative treatment. She wishes to hold off on surgery if at all possible. Allergies No Known Allergies Allergy (Verified 04/26/25 15:06) Medication List - Last Reconciled 10/25/25 by Francesco Sullivan MD alprazolam 0.5 mg PO BEDTIME PRN bupropion HCl XL 150 mg PO DAILY celecoxib (Celebrex) 200 mg PO DAILY PRN estradiol 1 patch transdermal QWEEK levothyroxine 25 mcg PO QAM [facility] Medical History Hypothyroid Osteoarthritis GERD (gastroesophageal reflux disease) Anxiety and depression History of colitis Surgical History H/O colonoscopy Family History Father HTN (hypertension) Diabetes Maternal Grandfather Colon cancer Social History Household Members: None Are you a primary child care center assistant director to a significant other at home: No Do you presently have visiting nurse or other home services: No Alcohol intake: current Alcohol intake frequency: holidays/special occasions only Patient Tobacco Use Status: Never used Tobacco Advance Directives Date on File: 04/11/21 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 Extrem Other: Left knee examination shows a minimal effusion, palpable crepitus with range of motion, pain with range of motion, no instability Office Procedures AMB Joint Injection/Aspiration Joint Injection/Aspiration Primary Site: Left Knee Prep: site was prepped using aseptic technique Injected: 20 mg of, Euflexxa, with 3 mL of and 1% plain Lidocaine Procedure: The patient tolerated the procedure well Coding 24425 - Large joint Procedure code (CPT) selection complete Results Reviewed Results Reviewed: X-rays of the patient's left knee taken previously show joint space narrowing, subchondral sclerosis, no acute bony abnormalities Assessment & Plan Assessment & Plan (1) Osteoarthritis of left knee: Code(s): M17.12 - Unilateral primary osteoarthritis, left knee Category: Medical Plan Ms. Bright presents with left knee pain due to osteoarthritis. The risks benefits of the 1st Euflexxa viscosupplementation injection were discussed at length with the patient. The patient wished to proceed. She tolerated the injection well. She will continue with her home exercise program. She will follow up next week as scheduled. Feel free to call me at any time should questions regarding her orthopedic management arise. I spent 21 minutes in reviewing the patient's records and imaging studies, seeing the patient and documenting in the medical record. Orders: Orders AMB Joint Injection/Aspiration Today M17.12 - Unilateral primary osteoarthritis, left knee Coding Level of Care Code Est Pt Level 3 (99358) Add On Problem Visit Only Diagnoses Osteoarthritis of left knee M17.12 CPT Codes Coding - 25520 Large joint: 68528 - Large joint ([id number])
--- OUTSIDE RECORDS SUMMARY | 2025-10-25 19:18 | XMS_ITS | Clinical Summary ---
Author Organization [facility] Address [address] [place] [id number] Phone Care Team Providers Care Photography Sales Associate Name Role Phone Hayder Reyna Unavailable Christopher Roger MD Unavailable Catarina Michaud [facility] Unavailable Bam Ng MD Unavailable [phone] Solo Holt MD Unavailable Catarina Michaud [facility] Primary Care Provider Allergies Active Allergy Reactions Criticality Noted Date Comments Iodine 08/23/2016 Other reaction(s): rash Trazodone Myalgia 01/01/2018 Medications melatonin 1 mg Tab Take 1 mg by mouth nightly at bedtime. Active buPROPion (WELLBUTRIN XL) 150 MG ER 24 hr tablet Take 1 tablet (150 mg total) by mouth daily. 90 tablet 1 07/27/2024 Active estradioL (VIVELLE-DOT) 0.1 mg/24 hrIndications:Co unseling for hormone replacement therapy,Menopaus e syndrome PLACE 1 PATCH ONTO THE SKIN 2 TIMES A WEEK. 8 patch 3 03/03/2025 Active levothyroxine (SYNTHROID,LEVOT HROID) 25 MCG tablet Take 1.5 tablets (37.5 mcg total) by mouth every morning. 135 tablet 1 05/18/2025 Active Active Problems Problem Noted Date Diagnosed Date Ernesto's thyroiditis 05/27/2024 Anxiety and depression 08/18/2018 Assessment & Plan (08/23/2020 8:43 AM EDT): Well controlled on Effexor XR 225mg daily. Irritable bowel syndrome wit h both constipation and diarrhea 10/08/2017 Resolved Problems Problem Noted Date Diagnosed Date Resolved Date Rectocele 07/06/2020 01/10/2022 Overview (08/02/2020): Symptomatic. Has to stent with BMs. Assessment & Plan (08/02/2020 9:58 AM EDT): The patient requests rectocele repair. Will need a repeat office exam to ensure that no other compartments need surgical correction. Tick bite of thoracic region 03/03/2018 06/02/2019 Assessment & Plan (03/03/2018 5:30 PM EDT): Adriana Villafana presents for a tick bite and she agreed to be treated with the prophylactic medication as above. she will call if there is any other issues. she understands and agrees. Atrophic vaginitis 10/08/2017 Primary insomnia 10/08/2017 06/25/2023 Assessment & Plan (08/23/2020 8:44 AM EDT): Recommended trial of Melatonin XR 1-5mg QHS PRN. Immunizations Immunization Administration Dates Next Due COVID-19 (Pre-09/01) Moderna Vaccine, mRNA, PF 0 02/21/2021,01/24/2021 Tdap 07/17/2017 Zoster recombinant 10/08/2024,06/08/2024 Family History Medical History Relation Comments No Known Problems Brother 1 No Known Problems Brother 2 CV disease Father Diabetes mellitus Father Heart attack Father Stroke Father Colon cancer Maternal Grandfather Leukemia Maternal Grandmother Thyroid disease Mother Heart attack Paternal Grandfather Stroke Paternal Grandmother Crohn's disease Sister No Known Problems Son 1 No Known Problems Son 2 Relation Status Comments Brother 1 Alive Brother 2 Alive Father Maternal Grandfather Maternal Grandmother Mother Alive Paternal Grandfather Paternal Grandmother Sister Alive Son 1 Alive Son 2 Alive Social History Tobacco Use Types Packs/Day Years Used Date Smoking Tobacco: Never Passive Smoke Exposure: Never Smokeless Tobacco: Never Tobacco Cessation:Counseling Given: Not Answered Alcohol Use Standard Drinks/Week Comments Yes 2 (1 standard drink = 0.6 oz pur e alcohol) rare Child or Family Care Answer Date Record ed Do you have problems with on e of the following making it difficult for you to work, study, or receive health care? No 03/27/2023 Education Answer Date Recorded Are you interested in more education? Not on tunde e 03/30/2025 Are you concerned about learning? Not on file 03/30/2025 No 03/30/2025 No 03/30/2025 Food Answer Date Recorded Within the past 6 months we worried whether our food would run out before we got money to buy more. Never True 03/27/2023 Within the past 6 months the food we bought just didn't last and we didn't have enough money to get more. Never True Residential Stability Answer Date Recor ded What is your housing situation today? I have darshan sing 03/27/2023 How many times have you move d in the past 12 months? Zero (I did not move) 03/27/2023 Paying for Meds Answer Date Recorded Do you have trouble paying for medicines? No 03/27/2023 Paying Utility Bills Answer Date Record ed Do you have trouble paying your heating or elect ricity bill? No 03/27/2023 Transportation Answer Date Recorded Has the lack of transportati on kept you from medical appointments or from getting medications? No 03/27/2023 Digital Access Answer Date Recorded No 03/30/2025 No 03/30/2025 Reliable internet access at home? Not on file 03/30/2025 Device with a working camera? Not on file Intimate Partner Violence Answer Date R ecorded Denied Basic Needs Not on file 04/01/2024 In the past 12 months have y ou been in a relationship with a person who hurts, threatens, or tries to control you? No 04/01/2024 Worried food would run out Not on file 04/01 In the past 12 months have y ou been in a relationship with a person who hurts, threatens, or tries to control you? 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 Not on file Not on file Last Filed Vital Signs Vital Sign Reading Time Taken Comments Blood Pressure 112/74 11/04/2024 3:16 PM EST Pulse 88 09/29/2024 2:59 PM EST Temperature 36.6 C (97.8 F) 05/11/2024 9:50 AM EDT Respiratory Rate 13 10/12/2020 9:00 AM EST Oxygen Saturation 100% 09/29/2024 2:59 PM EST Inhaled Oxygen Concentration - - Weight 72.1 kg (159 lb) 09/29/2024 2:59 PM EST Height 160 cm (5' 3 ) 11/04/2024 3:16 PM EST Body Mass Index 28.17 09/29/2024 2:59 PM EST Plan of Treatment Upcoming Encounters Date Type Department Care Team (Late st Contact Info) Description 12/08/2024 Procedure Pass [address] [place] [address] 01/16/2026 3:00 PM EDT Appointment [address] [place] [address] Catarina Michaud, [address], [address] [place] [address] [email or web address] Health Maintenance Due Date Last Done Comments COLOGUARD 2012 FIT TEST 2012 FOBT 2012 SIGMOIDOSCOPY 2012 VIRTUAL COLONOSCOPY 2012 PNEUMOCOCCAL VACCINES (50+ years) (1 of 1 - PCV) 2017 DEPRESSION SCREENING 05/08/2025 05/08/2024, 05/08/20 24 INFLUENZA VACCINE (#1) 2025 COVID-19 VACCINE (3 - season) 2025 02/21/2021, 01/24/2021 MAMMOGRAM 02/26/2026 02/27/2024, 02/08, 02/01/2022, Additional history exists COLONOSCOPY 04/11/2026 04/11/2021, 12/27/2015 COLORECTAL CANCER SCREENING 04/11/2026 TSH LEVEL 09/16/2026 09/16/2025, 08/0 02/2025, 05/04/2025, Additional history exists SCREENING FOR DIABETES 04/29/2027 , 04/29/2024, 01/09/2017 Adult Td,Tdap Booster 07/17/2027 07/17/2017 LIPID PANEL 04/29/2029 04/29/2024, 08/10, 08/23/2020, Additional history exists RSV VACCINE (1 - 1-dose 75+ series) 2042 HIV ONE-TIME SCREENING (18-65 YEARS) Completed 02/22/2014 HEPATITIS C SCREENING Completed 04/29/2024 SMOKING STATUS SCREENING (Once After 26 Yrs) Completed 09/29/2024 ZOSTER VACCINES Completed 10/08/2024, 06/08/2024 HEPATITIS A VACCINES Aged Out No long er eligible based on patient's age to complete this topic HIB VACCINES Aged Out No longer eligi ble based on patient's age to complete this topic MENINGOCOCCAL VACCINES (ACWY) Aged Out No longer eligible based on patient's age to complete this topic MENINGOCOCCAL VACCINES (B) Aged Out N o longer eligible based on patient's age to complete this topic Medical Devices Not on file Procedures Procedure Name Priority Date/Time Associated Diagnosis Comments TSH WITH REFLEX Routine 09/16/2025 2:57 PM EST Ernesto's thyroiditis LIPID PANEL Routine 04/29/2024 7:15 AM EDT Screening, lipid HEPATITIS C ANTIBODY, QUALITATIVE Routine 04/29/2024 7:15 AM EDT Need for hepatitis C screening test BI MAMMOGRAM SCREENING WITH TOMOSYNTHESIS WITH CAD (BILATERAL) Routine 02/27/2024 9:12 AM EDT Visit for screening mammogram HM COLONOSCOPY FOR RESULT ENTRY ONLY Routine 04/11/2021 OUTSIDE GLUCOSE FASTING Routine 01/09/2017 OUTSIDE HIV Routine 02/22/2014 from Last 3 Months or Most Recently Relevant to Health Maintenance Results * Thyroid Stimulating Hormone (TSH), with Reflex (09/16/2025 2:57 PM EST) TSH 2.46 0.40 - 5.00 uIU/mL 09/16/2025 7:09 PM EST [facility] Blood 09/16/2025 2:57 PM EST 09/16/2025 2:57 PM EST [facility] LAB BLOOD BKR ORDERABLES [place] Result Performing Organization Address [facility]/ZIP Co de Phone Number [address] [address] * Hepatitis C antibody, qualitative (04/29/2024 7:15 AM EDT) HCV NON-REACTIV E NON-REACTI VE [facility] Blood 04/29/2024 7:15 AM EDT 04/29/2024 7:53 AM EDT [facility] LAB BLOOD BKR ORDERABLES [place] Result Performing Organization Address City/[facility]/ZIP Co de Phone Number [address] [address] * (ABNORMAL) Lipid panel (04/29/2024 7:15 AM EDT) HDL 69 mg/dL [facility] Comment: Interpretation <40 mg/dL: Low HDL cholesterol (major risk factor for CHD) Greater than or equal to 60 mg/dL: High HDL cholesterol ( negative risk factor for CHD) HDL - cholesterol is affected by a number of factors, e.g. smoking, excerise, hormones, sex and age. CHOLESTEROL 186 0 - 240 mg/dL [facility] TRIGLYCERIDES 59 30 - 160 mg/dL [facility] LDL 105 50 - 129 mg/dL [facility] Comment: LDL levels in terms of risk for coronary heart disease: <100 mg/dL: Optimal 100-129 mg/dL: Near or above optimal 130-159 mg/dL: Borderline high 160-189 mg/dL: High >190 mg/dL: Very High CARDIAC RISK RATIO 2.7(L) 3.3 - 4.4 [facility] Blood 04/29/2024 7:15 AM EDT 04/29/2024 7:53 AM EDT us Catarina Michaud [employer] LAB BLOOD BKR ORDERABLES [place] Result Performing Organization Address City/State/[place] Co de Phone Number [facility] [address] [place] [address] * BI MAMMOGRAM SCREENING WITH TOMOSYNTHESIS WITH CAD (BILATERAL) (02/27/2024 9:12 AM EDT) Anatomical Region Laterality Modality Breast Left, Breast Right, Breast Bilateral Bila teral Mammography 03/01/2024 10:2 6 AM EDT Impressions 03/01/2024 10:29 AM EDT No mammographic evidence of malignancy in either breast. Annual screening mammography is recommended. BI-RADS 1 NEGATIVE The patient will be notified of the results and recommendations. Narrative 03/01/2024 10:29 AM EDT BI MAMMOGRAM SCREENING WITH TOMOSYNTHESIS WITH CAD (BILATERAL) Additional patient information: Screening. COMPARISON: Comparison is made with relevant prior imaging. Breast composition: There are scattered areas of fibroglandular density. FINDINGS: No abnormal masses, suspicious calcifications, or other significant findings are identified mammographically in either breast. There has been no interval change. Procedure Note Ivy Glez MD - 03/01/2024 BI MAMMOGRAM SCREENING WITH TOMOSYNTHESIS WITH CAD (BILATERAL) Additional patient information: Screening. COMPARISON: Comparison is made with relevant prior imaging. Breast composition: There are scattered areas of fibroglandular density. FINDINGS: No abnormal masses, suspicious calcifications, or other significantfindings are identified mammographically in either breast. There has been no interval change. IMPRESSION: No mammographic evidence of malignancy in either breast. Annual screening mammography is recommended. BI-RADS 1 NEGATIVE The patient will be notified of the results and recommendations. [facility] Bhavani Zurba ELECTRICAL SYSTEM SPECIALIST IMG MG EXAMS Final Result * COLONOSCOPY FOR RESULT ENTRY ONLY (04/11/2021) Historical Provider HEALTH MAINTENANCE Final Result * Outside Glucose,Fasting (01/09/2017) Glucose, fasting - External 88 65 - 99 mg/dL Result [facility] Provider LAB BLOOD ORDERABLES [place] Result * OUTSIDE HIV TEST (02/22/2014) HIV - External Neg Result [facility] Provider LAB BLOOD ORDERABLES [place] Result from Last 3 Months or Most Recently Relevant to Health Maintenance [place] [address] [place] [address] [place], [place] [address] [place] [address] Advance Directives For more information, please contact: [phone] (9AM - 5PM Jenna/[facility], Friday-Friday) Documents on File Type Date Recorded Patient Stiff Straw Hat 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 Expl 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 Healthcare Proxy 10/17/2020 2:13 PM * Full Code (Latest Code Status on File) Date Activated Date Inactivated Comments 10/12/2020 8:47 AM Question Answer Comments Code Status Confirmed With: Patient Care Teams Photography Sales Associate Relationship Specialty Start Date End Date Catarina Michaud FNP [address] [place] [phone] PCP - General Family Medicine 01/28/22 Hayder Reyna DO [address] [place] [address] Historical LMR Provider 08/31/17 Christopher Roger MD [address] [place] [address] Historical LMR Provider 08/31/17 Catarina Michaud FNP [address] [place] [id number] Historical LMR Provider 08/31/17 Bam Ng MD [address] [place] [phone] [email or web address] Historical LMR Provider 08/31/17 Solo Holt MD [address] [place] [address] [address] [place] [phone] [email or web address] Historical LMR Provider 08/31/17 Additional Source Comments The information contained in this document represents components of the legal health record. It is not the complete legal health record.[facility]
--- OUTSIDE RECORDS SUMMARY | 2025-10-25 19:18 | XMS_ITS | Patient Health Record ---
Author Organization [facility] Address [address] [facility] [place] [address] Care Team Providers Care Surveying Or Spatial Science Technician Name Role Phone Solo Holt MD Primary Care Provider Unavail able Black, Cecilia Unavailable [phone] Reason For Referral No Information Problems Problem Type SNOMED Code ICD Code Onset Dates Problem Status W/U Status Risk Notes Problem Hallux valgus (197562584) Hallux Valgus (735.0) Active confirmed Problem Hammer toe (923170166) Hammer toe (735.4) Active confirmed Problem Pain in limb (99560694) Pain in Limb (729.5) Active confirmed Plan Of Treatment Pending Test Test Name Order Date X ray : Foot, left 3V 06/28/2013 X ray : Foot, right 3V 06/28/2013 Insurance Providers Payer Name Payer Address Payer Phone Subscriber Number Group Number Insured Name Patient Relationship to Insured Coverage Start Date Coverage End Date [facility] [address] [facility] [address] [phone] [id number] Adriana Bright Self - patient is the insured Medical (General) History Medical History History ICD Code chicken pox Surgical History Surgery Date(Month/Year) section 12/1988
--- OUTSIDE RECORDS SUMMARY | 2025-10-25 19:18 | XMS_ITS | Encounter Summary ---
Author Organization [facility] Address [address] [place] [address] Phone Care Team Providers Care Vp Marketing Name Role Phone Axel Hayder Meng DO Unavailable Christopher Roger MD Unavailable Catarina MichaudP Unavailable Bam Ng MD Unavailable [phone] Solo Holt MD Unavailable Catarina Michaud [facility] Primary Care Provider [phone] Encounter Details Date Type Department Care Team (Late st Contact Info) Description 12/01/2023 Procedure Pass [facility] - [address] [place] [address] Social History Tobacco Use Types Packs/Day Years Used Date Smoking Tobacco: Never Passive Smoke Exposure: Never Smokeless Tobacco: Never Alcohol Use Standard Drinks/Week Comments Yes 2 (1 standard drink = 0.6 oz pur e alcohol) rare Child or Family Care Answer Date Record ed Do you have problems with on e of the following making it difficult for you to work, study, or receive health care? No 03/27/2023 Education Answer Date Recorded Are you interested in help w ith more adult education (for example, completing high school, GED, job training, learning the Kiswahili language, technical skills, or developing parenting skills)? No 03/27/2023 Are you concerned about learning? Not on file 03/27/2023 No 03/27/2023 Yes 03/27/2023 Food Answer Date Recorded Within the past [...] 03/27/2023 Digital Access Answer Date Recorded No 03/27/2023 Yes 03/27/2023 Do you have reliable internet access at home? Ye s 03/27/2023 Do you have a device (e.g., phone, tablet, computer) with a working camera? Yes 03/27/2023 Comments No Sex and Gender Information Value [...] file Not on file Not on file documented as of this encounter Plan of Treatment Upcoming Encounters Date Type Department Care Team (Late st Contact Info) Description 12/08/2024 Procedure Pass [address] [place] [address] 01/16/2026 3:00 PM EDT Appointment [address] [place] [address] Catarina Michaud, GAS PUMPING STATION OPERATOR [address] [facility], [address] [place] [address] documented as of this encounter Visit Diagnoses Not on filedocumented in this encounter Additional Health Concerns Assessment Noted Time PHQ-2 Depression Total Score: 0 03/27/20 23 2:03 PM EDT documented as of this encounter Care Teams Vp Marketing Relationship Specialty Start Date End Date Catarina Michaud, GAS PUMPING STATION OPERATOR [address] [place] [address] 7 [place] [address] PCP - General Family Medicine 01/28/22 Hayder Reyna DO [address] [place] [address] [address] [place] [address] [email or web address] Historical LMR Provider 08/31/17 Christopher Roger MD [address] [place] [address] Historical LMR Provider 08/31/17 Catarina Michaud Bhavani, GAS PUMPING STATION OPERATOR [address] [place] [address] [place] [address] Historical LMR Provider 08/31/17 Bam Ng MD [address] [place] [address] Historical LMR Provider 08/31/17 Solo Holt MD [address] [place], [place] [address] [place] [address] [email or web address] Historical LMR Provider 08/31/17 documented as of this encounter Additional Source Comments The information contained in this document represents components of the legal health record. It is not the complete legal health record.[facility]
--- OUTSIDE RECORDS SUMMARY | 2025-10-25 19:18 | XMS_ITS | Encounter Summary ---
Author Organization [facility] Address [address] [place] [address] Phone Care Team Providers Care Personal Service Workers Name Role Phone Axel Hayder Meng DO Unavailable Christopher Roger MD Unavailable Catarina Michaud Unavailable Bam Ng MD Unavailable [phone] Solo Holt MD Unavailable Solo Holt MD Primary Care Provider [phone] Catarina Michaud Primary Care Provider [phone] Encounter Details Date Type Department Care Team (Late st Contact Info) Description 01/10/2022 Procedure Pass [facility], [address] [address] Social History Tobacco Use Types Packs/Day Years Used Date Smoking Tobacco: Never Smokeless Tobacco: Never Alcohol Use Standard Drinks/Week Comments Yes 0 (1 standard drink = 0.6 oz pur e alcohol) rare Comments No Sex and Gender Information Value [...] st Contact Info) Description 12/08/2024 Procedure Pass [address] [place] [address] 01/16/2026 3:00 PM EDT Appointment [address] [place] [address] Catarina Michaud FNP [address] [place] [address] 7 [place] [address] [email or web address] documented as of this encounter Visit Diagnoses Not on filedocumented in this encounter Additional Health Concerns Assessment Noted Time PHQ-2 Depression Total Score: 0 01/09/20 22 5:14 PM EST documented as of this encounter Care Teams Personal Service Workers Relationship Specialty Start Date End Date Solo Holt MD [address] [place], [place] [address] [place] [address] [email or web address] PCP - General Family Medicine 09/17/17 01/27/22 Catarina Michaud FNP [address] [place] [address] [place] [address] PCP - General Family Medicine 01/28/22 Hayder Reyna DO [address] [place] [address] 7 [place] [address] [email or web address] Historical LMR Provider 08/31/17 Christopher Roger MD [address] [place] [address] Historical LMR Provider 08/31/17 Catarina Michaud FNP [address] [place] [address] 7 [place] [address] [email or web address] Historical LMR Provider 08/31/17 Bam Ng MD [address] [place] [address], [address] [place] [address] [email or web address] Historical LMR Provider 08/31/17 Solo Holt MD [address] [place] [address] [address] [place] [address] [email or web address] Historical LMR Provider 08/31/17 documented as of this encounter Additional Source Comments The information contained in this document represents components of the legal health record. It is not the complete legal health record.[facility]
--- OUTSIDE RECORDS SUMMARY | 2025-10-25 19:18 | XMS_ITS | Encounter Summary ---
Author Organization [facility] Address [address] [place] [address] Phone Care Team Providers Care Building Inspection Engineer Name Role Phone Hayder Reyna DO Unavailable Christopher Roger MD Unavailable Catarina MichaudP Unavailable Bam Ng MD Unavailable [phone] Solo Holt MD Unavailable [phone] Catarina Michaud [facility] Primary Care Provider Encounter Details Date Type Department Care Team (Late st Contact Info) Description 01/18/2023 Procedure Pass [facility], [address] [address] Social History Tobacco Use Types Packs/Day Years [...] st Contact Info) Description 12/08/2024 Procedure Pass [address] [place] [address] 01/16/2026 3:00 PM EDT Appointment [address] [place] [address] Catarina Michaud FNP [address] [facility] 7 [place] [address] [email or web address] documented as of this encounter Visit Diagnoses Not on filedocumented in this encounter Additional Health Concerns Assessment Noted Time PHQ-2 Depression Total Score: 0 01/09/20 22 5:14 PM EST documented as of this encounter Care Teams Building Inspection Engineer Relationship Specialty Start Date End Date Catarina Michaud FNP [address] [place] [address] [place] [address] PCP - General Family Medicine 01/28/22 Hayder Reyna DO [address] [place] [address] Historical LMR Provider 08/31/17 Christopher Roger MD [address] [place] [address] Historical LMR Provider 08/31/17 Catarina Michaud FNP [address] [place] [address] [place] [address] Historical LMR Provider 08/31/17 Bam Ng MD [address] [place] [address] [email or web address] Historical LMR Provider 08/31/17 Solo Holt MD [address] [place] [address] [address] [place] [phone] [email or web address] Historical LMR Provider 08/31/17 documented as of this encounter Additional Source Comments The information contained in this document represents components of the legal health record. It is not the complete legal health record.[facility]
--- OUTSIDE RECORDS SUMMARY | 2025-10-25 19:18 | XMS_ITS | Encounter Summary ---
Author Organization [facility] Address [address] [place] [address] Phone Care Team Providers Care Railroad Hand Name Role Phone Hayder Reyna DO Unavailable Eva Miller CNM Unavailable Christopher Roger MD Unavailable Shelby Browning PRODUCT SUPPORT REP Unavailable Johanny Perez WATER PUMPING STATION ENGINEER Unavailable [phone] Juice Spicer MD Unavailable Shena Greenberg WATER PUMPING STATION ENGINEER Unavailable Catarina Michaud AUTO BODY REPAIR ESTIMATOR Unavailable Flavia Velásquez MD Unavailable Bam Ng MD Unavailable [phone] Db Drummond MD Unavailable Terry Eric MD Unavailable Solo Holt MD Unavailable Solo Holt MD Primary Care Provider [phone] Solo Holt MD Unavailable Catarina Michaud AUTO BODY REPAIR ESTIMATOR Primary Care Provider [phone] Encounter Details Date Type Department Care Team (Late st Contact Info) Description 04/29/2019 Ancillary Orders [facility] [address] [place] [address] Bam Ng MD [address] [facility], [address] [place] [address] [email or web address] Breast screening Social History Tobacco Use Types Packs/Day Years Used Date Smoking Tobacco: Never Smokeless Tobacco: Never Comments Unknown Sex and Gender Information Value Date Recorded Sex Assigned at Female 01/01/2020 3:14 PM EST Legal Sex Female 9:39 PM EDT Gender Identity Female 01/01/2020 3:14 PM EST Sexual Orientation Choose not to disclose 2022 11:10 AM EDT Sexual Orientation Straight 06/20/2023 11 :10 AM EDT documented as of this encounter Plan of Treatment Upcoming Encounters Date Type Department Care Team (Late st Contact Info) Description 12/08/2024 Procedure Pass [address] [place] [address] 01/16/2026 3:00 PM EDT Appointment [address] [place] [address] Catarina Michaud FNP [address] [place] [address], [address] [place] [address] [email or web address] documented as of this encounter Results * BI MAMMOGRAM SCREENING WITH TOMOSYNTHESIS WITH CAD (BILATERAL) (05/06/2019 2:36 PM EDT) Anatomical Region Laterality Modality Breast Left, Breast Right, Breast Bilateral Bila teral Mammography 05/06/2019 3:02 PM EDT Impressions 05/06/2019 3:42 PM EDT No findings suspicious for malignancy are identified. In the absence of a worrisome palpable abnormality, annual screening mammography is recommended. BI-RADS CATEGORY: 1 - Negative. DENSITY: The breast tissue is heterogeneously dense, an appearance which lowers the sensitivity of mammography. POS CDHMAMA Narrative 05/06/2019 3:42 PM EDT COMPARISON: 11/04/2002 through 05/21/2017 Bilateral 3-D tomosynthesis with 2-D reconstructions in the CC and MLO projection. Computer-aided detection system also utilized. No new mass, asymmetry, architectural distortion or suspicious calcifications have become apparent on either side. Procedure Note Hayder Lenz MD - 05/06/2019 COMPARISON: 11/04/2002 through 05/21/2017 Bilateral 3-D tomosynthesis with 2-D reconstructions in the CC and MLOprojection. Computer-aided detection system also utilized. No new mass, asymmetry, architectural distortion or suspiciouscalcifications have become apparent on either side. IMPRESSION: No findings suspicious for malignancy are identified. In the absence of aworrisome palpable abnormality, annual screening mammography isrecommended. BI-RADS CATEGORY: 1 - Negative. DENSITY: The breast tissue is heterogeneously dense, an appearance whichlowers the sensitivity of mammography. POS CDHMAMA Bam Ng MD IMG MG EXAMS Final Result documented in this encounter Visit Diagnoses Diagnosis Breast screening Breast screening, unspecified Breast screening Breast screening, unspecified documented in this encounter Additional Health Concerns Infection Onset Date Last Indicated Resolved Time CoV-Risk 09/14/2020 09/15/2020 09/28/2020 1:25 AM EST Assessment Noted Time PHQ-2 Depression Total Score: 0 10/08/20 17 4:34 PM EST documented as of this encounter Care Teams Railroad Hand Relationship Specialty Start Date End Date Solo Holt MD [address] [place] [address] [address] [place] [phone] [email or web address] PCP - General Family Medicine 09/17/17 01/27/22 Catarina Michaud FNP [address] [place] [address], [address] [place] [address] [email or web address] PCP - General Family Medicine 01/28/22 Hayder Ryena DO 234 [facility] 7 [place] [address] [email or web address] Historical LMR Provider 08/31/17 Eva Miller CNM [address] [place] [address] Historical LMR Provider 08/31/17 2 Christopher Roger MD [address] [address] [email or web address] Historical LMR Provider 08/31/17 Shelby Browning CNP [address] [place] [address], [address] [place] [address] [email or web address] Historical LMR Provider 08/31/17 11/17/21 Johanny Perez NP [address] [place] [address] [email or web address] Historical LMR Provider 08/31/17 11/17/21 Juice Spicer MD [address] [place] [address] [email or web address] Historical LMR Provider 08/31/17 2 Shena Greenberg WATER PUMPING STATION ENGINEER [address] [place] [address] [email or web address] Historical LMR Provider 08/31/17 2 Catarina Michaud FNP 234 [facility] 7 [place] [address] [email or web address] Historical LMR Provider 08/31/17 Flavia Velásquez MD [address], [place] [address] Historical LMR Provider 08/31/17 2 Bam Ng MD [address] [place] [address] [email or web address] Historical LMR Provider 08/31/17 Db Drummond MD [address] [place] [phone] Historical LMR Provider 08/31/17 2 Terry Eric MD [address] [place] [phone] Historical LMR Provider 08/31/17 2 Solo Holt MD [address] [place] [address] [address] [place] [address] [email or web address] Historical LMR Provider 08/31/17 Solo Holt MD [address] [facility] [address] [place] [phone] [email or web address] Insurance Assigned Provider 06/13/1910/10 documented as of this encounter Additional Source Comments The information contained in this document represents components of the legal health record. It is not the complete legal health record.[facility]
--- OUTSIDE RECORDS SUMMARY | 2025-10-25 19:18 | XMS_ITS | Encounter Summary ---
Author Organization [facility] Address [address] [place] [address] Phone Care Team Providers Care High Frequency Mill Operator Name Role Phone Hayder Reyna DO Unavailable Eva Miller CNM Unavailable Christopher Roger MD Unavailable Shelby Browning VP DESIGN Unavailable Johanny Perez AUDIO RECORDING ENGINEER Unavailable Juice Spicer MD Unavailable Shena Greenberg AUDIO RECORDING ENGINEER Unavailable Catarina Michaud HUMAN RESOURCES TEMP Unavailable Flavia Velásquez MD Unavailable [phone] Bam Ng MD Unavailable [phone] Db Drummond MD Unavailable Terry Eric MD Unavailable Solo Holt MD Unavailable Solo Holt MD Primary Care Provider [phone] Solo Holt MD Unavailable Catarina MichaudP Primary Care Provider Encounter Details Date Type Department Care Team (Late st Contact Info) Description 07/29/2020 Procedure Pass [address] [place] [address] Social History Tobacco Use Types Packs/Day Years Used Date Smoking Tobacco: Never Smokeless Tobacco: Never Alcohol Use Standard Drinks/Week Comments Never 0 (1 standard drink = 0.6 oz pur e alcohol) Comments No Sex and Gender Information Value [...] Upcoming Encounters Date Type Department Care Team ([facility] st Contact Info) Description 12/08/2024 Procedure Pass [address] [place] [address] 01/16/2026 3:00 PM EDT Appointment [address] [place] [address] Catarina Michaud FNP [address] [facility], [address] [place] [address] [email or web address] documented as of this encounter Visit Diagnoses Not on filedocumented in this encounter Additional Health Concerns Infection Onset Date Last Indicated Resolved Time CoV-Risk 09/14/2020 09/15/2020 09/28/2020 1:25 AM EST Assessment Noted Time PHQ-2 Depression Total Score: 0 10/08/20 17 4:34 PM EST documented as of this encounter Care Teams High Frequency Mill Operator Relationship Specialty Start Date End Date Solo Holt MD [address] [place] [address] [address] [place] [phone] [email or web address] PCP - General Family Medicine 09/17/17 01/27/22 Catarina Michaud FNP [address] [place] [address] 7 [place] [address] [email or web address] PCP - General Family Medicine 01/28/22 Hayder Reyna DO [address] [place] [address] 7 [place] [address] [email or web address] Historical LMR Provider 08/31/17 Eva Miller CNM [address] [place] [address] Historical LMR Provider 08/31/17 2 Christopher Roger MD [address] [address] [email or web address] Historical LMR Provider 08/31/17 Shelby Browning, VP DESIGN [address] [place] [address], [address] [place] [address] [email or web address] Historical LMR Provider 08/31/17 11/17/21 Johanny Perez AUDIO RECORDING ENGINEER [address] [place] [address] [email or web address] Historical LMR Provider 08/31/17 11/17/21 Juice Spicer MD [address] [place] [address] [email or web address] Historical LMR Provider 08/31/17 2 Shena Greenberg, AUDIO RECORDING ENGINEER [address] [place] [address] [email or web address] Historical LMR Provider 08/31/17 2 Catarina Michaud FNP 234 [facility] 7 [place] [address] [email or web address] Historical LMR Provider 08/31/17 Flavia Velásquez MD [address] [place] [address] Historical LMR Provider 08/31/17 2 Bam Ng MD [address] [place] [address] [email or web address] Historical LMR Provider 08/31/17 Db Drummond MD [address] [place] [phone] Historical LMR Provider 08/31/17 2 Terry Eric MD [address] [place] [phone] Historical LMR Provider 08/31/17 2 Solo Holt MD [address] [place] [address] [address] [place] [phone] [email or web address] Historical LMR Provider 08/31/17 Solo Holt MD [address] [place] [address] [address] [place] [phone] [email or web address] Insurance Assigned Provider 06/13/1910/10 documented as of this encounter Additional Source Comments The information contained in this document represents components of the legal health record. It is not the complete legal health record.[facility]
--- OUTSIDE RECORDS SUMMARY | 2025-10-25 19:18 | XMS_ITS | Encounter Summary ---
Author Organization [facility] Address [address] [place] [address] [place] [address] Phone Care Team Providers Care Bistro Server Name Role Phone Hayder Reyna Yusra BETH Unavailable Christopher Roger MD Unavailable Catarina MichaudP Unavailable Bam Ng MD Unavailable YanetSolo sharma MD Unavailable Catarina Michaud [facility] Primary Care Provider Encounter Details Date Type Department Care Team (Latest Contact Info) Description 02/26/2023 Transcribe Orders Virtual Department [address] [place] [address] Catarina Michaud [facility] 234 [facility], [facility] 7 [place] [address] [email or web address] Abnormal mammogram of right breast (Primary Dx) Social History Tobacco Use Types Packs/Day Years [...] st Contact Info) Description 12/08/2024 Procedure Pass [address] [place] [address] 01/16/2026 3:00 PM EDT Appointment [address] [place] [address] Catarina Michaud, CODE NUMBER STAMPER 234 [facility], [address] [place] [address] [email or web address] documented as of this encounter Results * BI MAMMOGRAM DIAGNOSTIC WITH TOMOSYNTHESIS WITH CAD (RIGHT) (02/27/2023 10:05 AM EDT) Anatomical Region Laterality Modality Breast Right, Breast Bilateral Right M ammography 02/27/2023 10:1 1 AM EDT Impressions 02/27/2023 10:19 AM EDT No findings suspicious for malignancy. Bilateral screening mammography recommended in 12 months. Results and recommendation conveyed to the patient before she left the clinic. BI-RADS CATEGORY: 2 - Benign finding. There are scattered fibroglandular densities. Narrative 02/27/2023 10:19 AM EDT HISTORY: Abnormal right screening mammogram. COMPARISON: Compared with prior right mammograms as far back as 11/04/2002 and as recent as 02/25/2023. FINDINGS: The previously described area of questioned architectural distortion in the upper breast on the right MLO view of 02/25/2023 does not persist and appears to be superimposed fibroglandular tissue. No evidence of persisting architectural distortion or an underlying mass. Procedure Note Panchito Valentine MD - 02/27/2023 HISTORY: Abnormal right screening mammogram. COMPARISON: Compared with prior right mammograms as far back as101/05/2002 and as recent as 02/25/2023. FINDINGS: The previously described area of questioned architecturaldistortion in the upper breast on the right MLO view of 02/25/2023 does notpersist and appears to be superimposed fibroglandular tissue. No evidenceof persisting architectural distortion or an underlying mass. IMPRESSION: No findings suspicious for malignancy. Bilateral screening mammographyrecommended in 12 months. Results and recommendation conveyed to the patient before she left theclinic. BI-RADS CATEGORY: 2 - Benign finding. There are scattered fibroglandular densities. Catarina Michaud CODE NUMBER STAMPER IMG MG EXAMS Final Result documented in this encounter Visit Diagnoses Diagnosis Abnormal mammogram of right breast- Primary Abnormal mammogram of right breast documented in this encounter Additional Health Concerns Assessment Noted Time PHQ-2 Depression Total Score: 0 01/09/20 5:14 PM EST documented as of this encounter Care Teams Bistro Server Relationship Specialty Start Date End Date Catarina Michaud FNP [address] [place] [address] [email or web address] PCP - General Family Medicine 01/28/22 Hayder Reyna DO [address] [place] [address] [email or web address] Historical LMR Provider 08/31/17 Christopher Roger MD [address] [place] [address] [email or web address] Historical LMR Provider 08/31/17 Catarina Michaud FNP [address] [place] [address] [email or web address] Historical LMR Provider 08/31/17 Bam Ng MD [address] [place], [place] [address], [place] [address] [email or web address] Historical LMR Provider 08/31/17 Solo Holt MD [address] [place], [place] [address] [place] [address] [email or web address] Historical LMR Provider 08/31/17 documented as of this encounter Additional Source Comments The information contained in this document represents components of the legal health record. It is not the complete legal health record.[facility]
--- OUTSIDE RECORDS SUMMARY | 2025-10-25 19:18 | XMS_ITS | Patient Health Record ---
Author Organization [employer] [facility] Address [address] [place] [address] Care Team Providers Care Manufacturing Test Technician Name Role Phone NO PCP, NONE Primary Care Provider Unavailabl e Reason For Referral No Information Medications Medication SIG (Take, Route, Frequency, Duration) Notes Start Date End Date Status None as reported by patient/historian Active Social History Tobacco Use: Social History Observation Description Date Details (start date - stop date) Never Smoker NA - NA Social History Alcohol Use Social Info Question Answer Notes Alcohol Do you consume alcohol ? No * Tobacco Use: Social Info Question Answer Notes Tobacco Use/Smoking Are you a nonsmoker * Plan Of Treatment No Information Insurance Providers Payer Name Payer Address Payer Phone Subscriber Number Group Number Insured Name Patient Relationship to Insured Coverage Start Date Coverage End Date BLUE [employer]OSS [address] [place] [phone] [id number] VillafanaAdriana candelario Self - patient is the insured Medical (General) History Medical History History ICD Code History of : No Chronic health problems* Surgical History Surgery Date(Month/Year) Hospitalization History Reason Date(Month/Year)
--- OUTSIDE RECORDS SUMMARY | 2025-10-25 19:18 | XMS_ITS | Encounter Summary ---
Author Organization [facility] Address [facility] [address] [place] [address] Phone Care Team Providers Care Sterilizer Operator Name Role Phone Hayder Reyna Yusra BETH Unavailable Christopher Roger MD Unavailable Catarina MichaudP Unavailable Bam Ng MD Unavailable [phone] Solo Holt MD Unavailable [phone] Catarina Michaud [facility] Primary Care Provider [phone] Encounter Details Date Type Department Care Team (Late st Contact Info) Description 03/18/2022 Ancillary Orders [facility] [address] [place] [address] Nereyda Schwab MD [address] [place] [address] Orthopedics & Sports Medicine, [facility] [place] [address] [email or web address] Right knee pain Social History Tobacco Use Types Packs/Day Years [...] st Contact Info) Description 12/08/2024 Procedure Pass [address] [place] [address] 01/16/2026 3:00 PM EDT Appointment [address] [place] [address] CharuCatarina lees Bhavani, SAIL FINISHER MACHINE 234 [facility], [address] [place], [place] [address] [email or web address] documented as of this encounter Results * XR KNEE 4 OR MORE VIEWS (LEFT) (03/18/2022 3:09 PM EDT) Narrative SYSTEMGENERATED, DOCUMENTATION - 03/18/2022 3:10 PM EDT This image report has been auto-finalized and has not been read by a Radiologist. Interpretation has been included in the provider encounter note for this date of service. us Nereyda Schwab MD IMG XR LOWER EXTREMITY Fi nal Result documented in this encounter Visit Diagnoses Diagnosis Right knee pain Pain in joint, lower leg Right knee pain Pain in joint, lower leg documented in this encounter Additional Health Concerns Assessment Noted Time PHQ-2 Depression Total Score: 0 01/09/20 22 5:14 PM EST documented as of this encounter Care Teams Sterilizer Operator Relationship Specialty Start Date End Date Catarina Michaud FNP 234 [facility], [address] [place], [place] [address] [email or web address] PCP - General Family Medicine 01/28/22 Hayder Reyna DO 234 [facility], [address] [place], [place] [address] [email or web address] Historical LMR Provider 08/31/17 Christopher Roger MD [address] [place] [address] [email or web address] Historical LMR Provider 08/31/17 Catarina Michaud FNP [address] [place] [address] [email or web address] Historical LMR Provider 08/31/17 Bam Ng MD [address] [place] [address] [email or web address] Historical LMR Provider 08/31/17 Solo Holt MD [address] [place], [place] [address] [place] [address] [email or web address] Historical LMR Provider 08/31/17 documented as of this encounter Additional Source Comments The information contained in this document represents components of the legal health record. It is not the complete legal health record.[facility]
--- OUTSIDE RECORDS SUMMARY | 2025-10-25 19:18 | XMS_ITS | Encounter Summary ---
Author Organization [facility] Address [address] [place] [address] Phone Care Team Providers Care Mandrel Cleaner Name Role Phone Hayder Reyna DO Unavailable Eva Miller CNM Unavailable Christopher Roger MD Unavailable Shelby Browning DEBEAKER Unavailable Johanny Perez PLASTIC STRAIGHTENING ROLL OPERATOR Unavailable [phone] Juice Spicer MD Unavailable Shena Greenberg PLASTIC STRAIGHTENING ROLL OPERATOR Unavailable Catarina Michaud PLASTER MAKER Unavailable Flavia Velásquez MD Unavailable [phone] Bam Ng MD Unavailable [phone] Db Drummond MD Unavailable Terry Eric MD Unavailable Solo Holt MD Unavailable Solo Holt MD Primary Care Provider [phone] Solo Holt MD Unavailable Catarina MichaudP Primary Care Provider [phone] Encounter Details Date Type Department Care Team (Late st Contact Info) Description 10/12/2020 Procedure Pass OR Admitting Dept - Virtual Department [address] [place] [address] Social History Tobacco Use Types Packs/Day Years [...] Upcoming Encounters Date Type Department Care Team ([facility] st Contact Info) Description 12/08/2024 Procedure Pass [address] [place] [address] 01/16/2026 3:00 PM EDT Appointment [address] [place] [address] Catarina Michaud FNP 234 [facility] 7 [place] [address] [email or web address] documented as of this encounter Visit Diagnoses Not on filedocumented in this encounter Additional Health Concerns Assessment Noted Time PHQ-2 Depression Total Score: 0 10/08/20 17 4:34 PM EST documented as of this encounter Care Teams Mandrel Cleaner Relationship Specialty Start Date End Date Solo Holt MD [address] [place] [address] [address] [place] [address] [email or web address] PCP - General Family Medicine 09/17/17 01/27/22 Catarina Michaud FNP [address] [place] [address] [place] [address] [email or web address] PCP - General Family Medicine 01/28/22 Hayder Reyna DO [address] [place] [address] 7 [place] [address] [email or web address] Historical LMR Provider 08/31/17 Eva Miller CNM [address] [place] [address] Historical LMR Provider 08/31/17 2 Christopher Roger MD [address] [address] [email or web address] Historical LMR Provider 08/31/17 Shelby Browning CNP [address] [place] [address], [address] [place] [address] [email or web address] Historical LMR Provider 08/31/17 11/17/21 Johanny Perez NP 30 [place] [address] [email or web address] Historical LMR Provider 08/31/17 11/17/21 Juice Spicer MD [address] [place] [address] [email or web address] Historical LMR Provider 08/31/17 2 Shena Greenberg NP 21 [place] [address] [email or web address] Historical LMR Provider 08/31/17 2 Catarina Michaud FNP 234 [facility] 7 [place] [address] [email or web address] Historical LMR Provider 08/31/17 Flavia Velásquez MD [address] [place] [address] Historical LMR Provider 08/31/17 2 Bam Ng MD [address] [place] [address] [email or web address] Historical LMR Provider 08/31/17 Db Drummond MD [address] [place] [phone] Historical LMR Provider 08/31/17 2 Terry Eric MD [address] [place] [address] Historical LMR Provider 08/31/17 2 Solo Holt MD [address] [place] [address] [address] [place] [address] [email or web address] Historical LMR Provider 08/31/17 Solo Holt MD 234 [facility] [address] [place] [phone] [email or web address] Insurance Assigned Provider 06/13/1910/10 documented as of this encounter Additional Source Comments The information contained in this document represents components of the legal health record. It is not the complete legal health record.[facility]
== END 2025-10-25 15:55 | disposition home or self-care (01) ==
LOC: HO.HOS 14:57
PROVIDERS: PCP Nurse Practitioner Family; Visit Provider Orthopaedic Surgery
DX: M17.12 Unilateral primary osteoarthritis, left knee (principal)
CPT/HCPCS: 20610; 99213

== ENCOUNTER → 2025-10-25 14:56 | Outpatient (BNVA) | payer OTHER, SELFPAY | PROVIDERS: PCP Nurse Practitioner Family; Visit Provider Orthopaedic Surgery | DX: M17.12 Unilateral primary osteoarthritis, left knee (principal) | CPT/HCPCS: 20610; J2003; J7323 ==

== ENCOUNTER 2025-11-01 15:03 | Outpatient (AMB) | payer OTHER, SELFPAY ==
--- NOTE | 2025-11-01 15:05 | MHC.OFFVIS ---
Intake Visit Reasons: INJ- Lt knee Euflexxa #2 Intake Note: Adriana is a 60 year old female who presents today for her left knee pain. She is here for her Euflexxa #2 in her left knee. Patient states that the first injection did give relief. She continues with her home exercise program. Allergies No Known Allergies Allergy (Verified 04/26/25 15:06) Medication List - Last Reconciled 11/02/25 by Francesco Sullivan MD alprazolam 0.5 mg PO BEDTIME PRN bupropion HCl XL 150 mg PO DAILY celecoxib (Celebrex) 200 mg PO DAILY PRN estradiol 1 patch transdermal QWEEK levothyroxine 25 mcg PO QAM [facility] Medical History Hypothyroid Osteoarthritis GERD (gastroesophageal reflux disease) Anxiety and depression History of colitis Surgical History H/O colonoscopy Family History Father HTN (hypertension) Diabetes Maternal Grandfather Colon cancer Social History Household Members: None Are you a primary child care associate teacher to a significant other at home: No Do you presently have visiting nurse or other home services: No Alcohol intake: current Alcohol intake frequency: holidays/special occasions only Patient Tobacco Use Status: Never used Tobacco Advance Directives Date on File: 04/11/21 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 Extrem Other: Left knee examination shows a minimal effusion, palpable crepitus with range of motion, pain with range of motion, no instability Office Procedures AMB Joint Injection/Aspiration Joint Injection/Aspiration Primary Site: Left Knee Prep: site was prepped using aseptic technique Injected: 20 mg of, Euflexxa, with 3 mL of and 1% plain Lidocaine Procedure: The patient tolerated the procedure well Coding 64746 - Large joint Procedure code (CPT) selection complete Assessment & Plan Assessment & Plan (1) Osteoarthritis of left knee: Code(s): M17.12 - Unilateral primary osteoarthritis, left knee Category: Medical Plan Ms. Bright presents with left knee pain due to osteoarthritis. The risks and benefits of a 2nd Euflexxa injection were discussed at length with the patient. The patient wished to proceed. She tolerated the injection well. She will continue with her home exercise program. She will contact me prior to her follow-up appointment next weeks should any questions or concerns arise. Feel free to call me at any time should questions regarding her orthopedic management arise. Orders: Orders AMB Joint Injection/Aspiration 11/01/25 M17.12 - Unilateral primary osteoarthritis, left knee Coding Level of Care Code Procedure Only Diagnoses Osteoarthritis of left knee M17.12 CPT Codes Coding - 48152 Large joint: 57598 - Large joint ([id number])
--- OUTSIDE RECORDS SUMMARY | 2025-11-01 16:21 | XMS_ITS | Encounter Summary ---
Author Organization [facility] Address [address] [place] [address] [place] [address] Phone Care Team Providers Care Director Of Rotc Name Role Phone Peñaveronica Hayder Meng DO Unavailable Christopher Roger MD Unavailable Catarina MichaudP Unavailable [phone] Bam Ng MD Unavailable Solo Holt MD Unavailable Catarina Michaud [facility] Primary Care Provider [phone] Encounter Details Date Type Department Care Team (Latest Contact Info) Description 02/26/2023 Transcribe Orders Virtual Department [address] [place] [address] Catarina Michaud [facility] 234 [facility], [facility] 7 [place] [address] [email or web address] Abnormal mammogram of right breast (Primary Dx) [...] st Contact Info) Description 12/08/2024 Procedure [address] [place] [address] 01/16/2026 3:00 PM EDT Appointment [address] [place] [address] Catarina Michaud, FILE KEEPER 234 [facility], [address] [place] [address] [email or web address] documented as of this encounter Results * [...] There are scattered fibroglandular densities. Catarina Michaud FILE KEEPER IMG MG EXAMS Final Result documented in this encounter Visit Diagnoses Diagnosis Abnormal mammogram of right breast- Primary Abnormal mammogram of right breast documented in this encounter Additional Health Concerns Assessment Noted Time PHQ-2 Depression Total Score: 0 01/09/20 5:14 PM EST documented as of this encounter Care Teams Director Of Rotc Relationship Specialty Start Date End Date Catarina Michaud FNP [address] [place] [address] [email or web address] PCP - General Family Medicine 01/28/22 Hayder Reyna DO [address] [place] [address] [email or web address] Historical LMR Provider 08/31/17 Christopher Roger MD [address] [place] [address] [email or web address] Historical LMR Provider 08/31/17 Catarina Michaud FNP [address] [place] [address] [email or web address] Historical LMR Provider 08/31/17 Bam Ng MD [address] [place], [place] [address], [place] [address] [email or web address] Historical LMR Provider 08/31/17 Solo Holt MD [address] [place], [place] [address] [place] [address] [email or web address] Historical LMR Provider 08/31/17 documented as of this encounter Additional Source Comments The information contained in this document represents components of the legal health record. It is not the complete legal health record.[facility]
--- OUTSIDE RECORDS SUMMARY | 2025-11-01 16:21 | XMS_ITS | Encounter Summary ---
Author Organization [facility] Address [address] [place] [address] Phone Care Team Providers Care Early Childhood Associate Teacher Name Role Phone Hayder Reyna DO Unavailable Eva Miller CNM Unavailable Christopher Roger MD Unavailable Shelby Browning HELPER ELECTRICAL Unavailable Johanny Perez PAN GREASER Unavailable [phone] Juice Spicer MD Unavailable Shena Greenberg PAN GREASER Unavailable Catarina Michaud TITLE SPECIALIST Unavailable Flavia Velásquez MD Unavailable [phone] Bam Ng MD Unavailable [phone] Db Drummond MD Unavailable Terry Eric MD Unavailable Solo Holt MD Unavailable Solo Holt MD Primary Care Provider [phone] Solo Holt MD Unavailable Catarina MichaudP Primary Care Provider Encounter Details Date Type Department Care Team (Late st Contact Info) Description 07/29/[address] [place] [address] Social History Tobacco Use Types Packs/Day Years [...] Upcoming Encounters Date Type Department Care Team ([facility] st Contact Info) Description 12/08/2024 Procedure Pass [address] [place] [address] 01/16/2026 3:00 PM EDT Appointment [address] [place] [address] Catarina Michaud FNP 234 [facility], [address] [place] [address] [email or web address] documented as of this encounter Visit Diagnoses Not on filedocumented in this encounter Additional Health Concerns Infection Onset Date Last Indicated Resolved Time CoV-Risk 09/14/2020 09/15/2020 09/28/2020 1:25 AM EST Assessment Noted Time PHQ-2 Depression Total Score: 0 10/08/20 17 4:34 PM EST documented as of this encounter Care Teams Early Childhood Associate Teacher Relationship Specialty Start Date End Date Solo Holt MD [address] [place] [address] [address] [place] [phone] [email or web address] PCP - General Family Medicine 09/17/17 01/27/22 Catarina Michaud FNP [address] [place] [address] 7 [place] [address] [email or web address] PCP - General Family Medicine 01/28/22 Hayder Reyna DO [address] [place] [address] 7 [place] [address] [email or web address] Historical LMR Provider 08/31/17 Eva Miller CNM [address] [place] [address] Historical LMR Provider 08/31/17 2 Christopher Roger MD [address] [address] [email or web address] Historical LMR Provider 08/31/17 Shelby Browning, HELPER ELECTRICAL [address] [place] [address], [address] [place] [address] [email or web address] Historical LMR Provider 08/31/17 11/17/21 Johanny Perez PAN GREASER [address] [place] [address] [email or web address] Historical LMR Provider 08/31/17 11/17/21 Juice Spicer MD [address] [place] [address] [email or web address] Historical LMR Provider 08/31/17 2 Shena Greenberg, PAN GREASER [address] [place] [address] [email or web address] Historical LMR Provider 08/31/17 2 Catarina Michaud FNP 234 [facility] 7 [place] [address] [email or web address] Historical LMR Provider 08/31/17 Flavia Velásquez MD [address] [place] [address] Historical LMR Provider 08/31/17 2 Bam Ng MD [address] [place] [address] [email or web address] Historical LMR Provider 08/31/17 Db Drummond MD [address] [place] [phone] Historical LMR Provider 08/31/17 2 Terry Eric MD [address] [place] [phone] Historical LMR Provider 08/31/17 2 Solo Holt MD [address] [place] [address] [address] [place] [address] [email or web address] Historical LMR Provider 08/31/17 Solo Holt MD [address] [place] [address] [address] [place] [address] [email or web address] Insurance Assigned Provider 06/13/1910/10 documented as of this encounter Additional Source Comments The information contained in this document represents components of the legal health record. It is not the complete legal health record.[facility]
--- OUTSIDE RECORDS SUMMARY | 2025-11-01 16:21 | XMS_ITS | Encounter Summary ---
Author Organization [facility] Address [address] [place] [address] Phone Care Team Providers Care Warehouse Hand Name Role Phone Hayder Reyna DO Unavailable Eva Miller CNM Unavailable Christopher Roger MD Unavailable Shelby Browning AVIATION MEDICINE SPECIALIST Unavailable Johanny Perez PEDIATRIC CRITICAL CARE NURSE Unavailable [phone] Juice Spicer MD Unavailable Shena Greenberg PEDIATRIC CRITICAL CARE NURSE Unavailable Catarina Michaud ROTARY SOIL STABILIZER OPERATOR Unavailable Flavia Velásquez MD Unavailable [phone] Bam Ng MD Unavailable [phone] Db Drummond MD Unavailable Terry Eric MD Unavailable Solo Holt MD Unavailable Solo Holt MD Primary Care Provider [phone] Solo Holt MD Unavailable Catarina MichaudP Primary Care Provider [phone] Encounter Details Date Type Department Care Team (Late st Contact Info) Description 10/12/2020 Procedure Pass OR Admitting Dept - Virtual Department [address] [place] [address] Social History Tobacco Use Types Packs/Day Years [...] Upcoming Encounters Date Type Department Care Team ([facility] st Contact Info) Description 12/08/2024 Procedure Pass [address] [place] [address] 01/16/2026 3:00 PM EDT Appointment [address] [place] [address] Catarina Michaud FNP 234 [facility] 7 [place] [address] [email or web address] documented as of this encounter Visit Diagnoses Not on filedocumented in this encounter Additional Health Concerns Assessment Noted Time PHQ-2 Depression Total Score: 0 10/08/20 17 4:34 PM EST documented as of this encounter Care Teams Warehouse Hand Relationship Specialty Start Date End Date Solo Holt MD [address] [place] [address] [address] [place] [phone] [email or web address] PCP - General Family Medicine 09/17/17 01/27/22 Catarina Michaud FNP [address] [place] [address] 7 [place] [address] [email or web address] PCP - General Family Medicine 01/28/22 Hayder Reyna DO [address] [place] [address] 7 [place] [address] [email or web address] Historical LMR Provider 08/31/17 Eva Miller CNM [address] [place] [address] Historical LMR Provider 08/31/17 2 Christopher Roger MD [address] [address] [email or web address] Historical LMR Provider 08/31/17 Shelby Browning CNP [address] [place] [address], [address] [place] [address] [email or web address] Historical LMR Provider 08/31/17 11/17/21 Johanny Perez NP [address] [place] [address] [email or web address] Historical LMR Provider 08/31/17 11/17/21 Juice Spicer MD [address] [place] [address] [email or web address] Historical LMR Provider 08/31/17 2 Shena Greenberg NP [address] [place] [address] [email or web address] Historical LMR Provider 08/31/17 2 Catarina Michaud FNP 234 [facility] 7 [place] [address] [email or web address] Historical LMR Provider 08/31/17 Flavia Velásquez MD [address] [place] [address] Historical LMR Provider 08/31/17 2 Bam Ng MD [address] [place] [address] [email or web address] Historical LMR Provider 08/31/17 Db Drummond MD [address] [place] [phone] Historical LMR Provider 08/31/17 2 Terry Eric MD [address] [place] [address] Historical LMR Provider 08/31/17 2 Solo Holt MD [address] [place] [address] [address] [place] [address] [email or web address] Historical LMR Provider 08/31/17 Solo Holt MD 234 [facility] [address] [place] [phone] [email or web address] Insurance Assigned Provider 06/13/1910/10 documented as of this encounter Additional Source Comments The information contained in this document represents components of the legal health record. It is not the complete legal health record.[facility]
--- OUTSIDE RECORDS SUMMARY | 2025-11-01 16:21 | XMS_ITS | Encounter Summary ---
Author Organization [facility] Address [address] [place] [address] Phone Care Team Providers Care Senior Technical Business Analyst Name Role Phone Hayder Reyna DO Unavailable Eva Miller CNM Unavailable Christopher Roger MD Unavailable Shelby Bronwing DIRECTOR OF SALES SUPPORT Unavailable Johanny Perez LEAD CASTER HELPER Unavailable [phone] Juice Spicer MD Unavailable Shena Greenberg LEAD CASTER HELPER Unavailable Catarina Michaud CORRUGATED BOX MACHINE OPERATOR Unavailable Flavia Velásquez MD Unavailable [phone] Bam Ng MD Unavailable [phone] Db Drummond MD Unavailable Terry Eric MD Unavailable Solo Holt MD Unavailable Solo Holt MD Primary Care Provider [phone] Solo Holt MD Unavailable Catarina Michaud CORRUGATED BOX MACHINE OPERATOR Primary Care Provider [phone] Encounter Details Date Type Department Care Team (Late st Contact Info) Description 04/29/2019 Ancillary Orders [facility] Obstetrics [facility] Gynecology [facility] [address] [place] [address] Bam Ng MD 22 [facility], [address] [place] [address] [email or web address] Breast [email or web address] Social History [...] st Contact Info) Description 12/08/2024 Procedure Pass [address] [place] [address] 01/16/2026 3:00 PM EDT Appointment [address] [place] [address] Catarina Michadu FNP [address] [place] [address], [address] [place] [address] [email or web address] documented as of this [...] documented as of this encounter Care Teams Senior Technical Business Analyst Relationship Specialty Start Date End Date Solo Holt MD [address] [place] [address] [address] [place] [phone] [email or web address] PCP - General Family Medicine 09/17/17 01/27/22 Catarina Michaud FNP [address] [place] [address], [address] [place] [address] [email or web address] PCP - General Family Medicine 01/28/22 Hayder Reyna DO 234 [facility] 7 [place] [address] [email or web address] Historical LMR Provider 08/31/17 Eva Miller CNM 30 [place] [address] Historical LMR Provider 08/31/17 2 Christopher Roger MD [address] [address] [email or web address] Historical LMR Provider 08/31/17 Shelby Browning CNP [address] [place] [address], [address] [place] [address] [email or web address] Historical LMR Provider 08/31/17 11/17/21 Johanny Perez NP 30 [place] [address] [email or web address] Historical LMR Provider 08/31/17 11/17/21 Juice Spicer MD [address] [place] [address] [email or web address] Historical LMR Provider 08/31/17 2 Sehna Greenberg LEAD CASTER HELPER 21 [place] [address] [email or web address] Historical LMR Provider 08/31/17 2 Catarina Michaud FNP 234 [facility] 7 [place] [address] [email or web address] Historical LMR Provider 08/31/17 Flavia Velásquez MD [address] [address] Historical LMR Provider 08/31/17 2 Bam Ng MD [address] [place] [address] [email or web address] Historical LMR Provider 08/31/17 Db Drummond MD [address] [place] [phone] Historical LMR Provider 08/31/17 2 Terry Eric MD [address] [place] [phone] Historical LMR Provider 08/31/17 2 Solo Holt MD [address] [place] [address] [address] [place] [address] [email or web address] Historical LMR Provider 08/31/17 Solo Holt MD 234 [facility] [address] [place] [phone] [email or web address] Insurance Assigned Provider 06/13/1910/10 documented as of this encounter Additional Source Comments The information contained in this document represents components of the legal health record. It is not the complete legal health record.[facility]
--- OUTSIDE RECORDS SUMMARY | 2025-11-01 16:21 | XMS_ITS | Patient Health Record ---
Author Organization [facility] Address [address] [facility] [place] [address] Care Team Providers Care Information Consultant Name Role Phone Solo Holt MD Primary Care Provider Unavail able Black, Cecilia Unavailable [phone] Reason For Referral No Information Problems Problem Type SNOMED Code ICD Code Onset Dates Problem Status W/U Status Risk Notes Problem Hallux valgus (394703276) Hallux Valgus (735.0) Active confirmed Problem Hammer toe (227004290) Hammer toe (735.4) Active confirmed Problem Pain in limb (38812796) Pain in Limb (729.5) Active confirmed Plan Of Treatment Pending Test Test Name Order Date X ray : Foot, left 3V 06/28/2013 X ray : Foot, right 3V 06/28/2013 Insurance Providers Payer Name Payer Address Payer Phone Subscriber Number Group Number Insured Name Patient Relationship to Insured Coverage Start Date Coverage End Date [facility] [address] [facility] [id number] [phone] [id number] Adriana Bright Self - patient is the insured Medical (General) History Medical History History ICD Code chicken pox Surgical History Surgery Date(Month/Year) section 12/1988
--- OUTSIDE RECORDS SUMMARY | 2025-11-01 16:21 | XMS_ITS | Clinical Summary ---
Author Organization [facility] Address [address] [place] [address] Phone Care Team Providers Care Info Specialist Name Role Phone Hayder Reyna Yusra BETH Unavailable Christopher Roger MD Unavailable Catarina Michaud [facility] Unavailable [phone] Bam Ng MD Unavailable [phone] Solo Holt MD Unavailable Catarina Michaud [facility] Primary Care Provider Allergies Active Allergy Reactions [...] st Contact Info) Description 12/08/2024 Procedure Pass [address] [place] [address] 01/16/2026 3:00 PM EDT Appointment [address] [place] [address] Catarina Michaud, [address], [address] [place] [address] [email or web address] Health Maintenance Due Date Last Done Comments [...] - 5.00 uIU/mL 09/16/2025 7:09 PM EST [facility] Blood 09/16/2025 2:57 PM EST 09/16/2025 2:57 PM EST [facility] LAB BLOOD BKR ORDERABLES Sum[place] l Result Performing Organization Address [facility]/ZIP Co de Phone Number [address] [address] * Hepatitis C antibody, qualitative (04/29/2024 7:15 AM EDT) HCV NON-REACTIV E NON-REACTI VE [facility] Blood 04/29/2024 7:15 AM EDT 04/29/2024 7:53 AM EDT [facility] LAB BLOOD BKR ORDERABLES Suma l Result Performing Organization Address City/[facility]/ZIP Co de Phone Number [address] [address] * (ABNORMAL) Lipid panel (04/29/2024 7:15 AM EDT) HDL 69 mg/dL [facility] Comment: Interpretation <40 mg/dL: Low HDL cholesterol (major risk factor for CHD) Greater than or equal to 60 mg/dL: High HDL cholesterol ( negative risk factor for CHD) HDL - cholesterol is affected by a number of factors, e.g. smoking, excerise, hormones, sex and age. CHOLESTEROL 186 0 - 240 mg/dL [facility] TRIGLYCERIDES 59 30 - 160 mg/dL [facility] LDL 105 50 - 129 mg/dL [facility] Comment: LDL levels in terms of risk for coronary heart disease: <100 mg/dL: Optimal 100-129 mg/dL: Near or above optimal 130-159 mg/dL: Borderline high 160-189 mg/dL: High >190 mg/dL: Very High CARDIAC RISK RATIO 2.7(L) 3.3 - 4.4 C [facility] Blood 04/29/2024 7:15 AM EDT 04/29/2024 7:53 AM EDT us Catarina Michaud [facility] LAB BLOOD BKR ORDERABLES Suma l Result Performing Organization Address City/State/[facility] Co de Phone Number [facility] [address] [place] [address] * BI MAMMOGRAM SCREENING WITH TOMOSYNTHESIS WITH [...] be notified of the results and recommendations. [facility] Bhavani Zurba [facility] MG EXAMS Final Result * COLONOSCOPY FOR RESULT ENTRY ONLY (04/11/2021) Historical Provider HEALTH MAINTENANCE Final Result * Outside Glucose,Fasting (01/09/2017) Glucose, fasting - External 88 65 - 99 mg/dL Result [facility] Provider LAB BLOOD ORDERABLES Suma l Result * OUTSIDE HIV TEST (02/22/2014) HIV - External Neg Result [facility] Provider LAB BLOOD ORDERABLES Suma l Result from Last 3 Months or Most Recently Relevant to Health Maintenance Insurance [address] [place], [place] [address] [place], [place] [address] [place], [place] [address]O [facility] Advance Directives For more information, please contact: [phone] (9AM - 5PM Jenna/[facility], Friday-Friday) Documents on File Type Date Recorded Patient Security Operations Engineer Expl anation Healthcare Proxy 10/17/2020 2:13 PM * Full Code (Latest Code Status on File) Date Activated Date Inactivated Comments 10/12/2020 8:47 AM Question Answer Comments Code Status Confirmed With: Patient Care Teams Info Specialist Relationship Specialty Start Date End Date Catarina Michaud FNP [address] [place] [address] PCP - General Family Medicine 01/28/22 Hayder Reyna DO [address] [place] [address] Historical LMR Provider 08/31/17 Christopher Roger MD [address] [place] [address] Historical LMR Provider 08/31/17 Catarina Michaud FNP [address] [place] [address] Historical LMR Provider 08/31/17 Bam Ng MD [address] [place] [address] [email or web address] Historical LMR Provider 08/31/17 Solo Hotl MD [address] [place] [address] [address] [place] [phone] [email or web address] Historical LMR Provider 08/31/17 Additional Source Comments The information contained in this document represents components of the legal health record. It is not the complete legal health record.[facility]
--- OUTSIDE RECORDS SUMMARY | 2025-11-01 16:21 | XMS_ITS | Encounter Summary ---
Author Organization [facility] Address [facility] [address] [place] [address] Phone Care Team Providers Care Certified Coder Name Role Phone Hayder Reyna Yusra BETH Unavailable Christopher Roger MD Unavailable Catarina MichaudP Unavailable Bam Ng MD Unavailable [phone] Solo Holt MD Unavailable [phone] Catarina Michaud [facility] Primary Care Provider [phone] Encounter Details Date Type Department Care Team (Late st Contact Info) Description 03/18/2022 Ancillary Orders [facility] [address] [place] [address] Nereyda Schwab MD [address] [place] [address] Orthopedics & Sports Medicine, [facility] [place] [address] [email or web address] Right knee pain Social History [...] st Contact Info) Description 12/08/2024 Procedure Pass [address] [place] [address] 01/16/2026 3:00 PM EDT Appointment [address] [place] [address] CharuCatarina lees Bhavani, LEAD CARPENTER 234 [facility], [address] [place], [place] [address] [email or web address] documented as of this encounter Results * [...] documented as of this encounter Care Teams Certified Coder Relationship Specialty Start Date End Date Catarina Michaud FNP 234 [facility], [address] [place], [place] [address] [email or web address] PCP - General Family Medicine 01/28/22 Hayder Reyna DO 234 [facility], [address] [place], [place] [address] [email or web address] Historical LMR Provider 08/31/17 Christopher Roger MD [address] [place] [address] [email or web address] Historical LMR Provider 08/31/17 Catarina Michaud FNP [address] [place] [address] [email or web address] Historical LMR Provider 08/31/17 Bam Ng MD [address] [place] [address] [email or web address] Historical LMR Provider 08/31/17 Solo Holt MD [address] [place], [place] [address] [place] [address] [email or web address] Historical LMR Provider 08/31/17 documented as of this encounter Additional Source Comments The information contained in this document represents components of the legal health record. It is not the complete legal health record.[facility]
--- OUTSIDE RECORDS SUMMARY | 2025-11-01 16:21 | XMS_ITS | Encounter Summary ---
Author Organization [facility] Address [address] [place] [address] Phone Care Team Providers Care Computer Systems Technician Name Role Phone PeñaHayder martin DO Unavailable Christopher Roger MD Unavailable Catarina Michaud Unavailable [phone] Bam Ng MD Unavailable [phone] Solo Holt MD Unavailable Solo Holt MD Primary Care Provider [phone] Catarina Michaud Primary Care Provider [phone] Encounter Details Date Type Department Care Team (Late st Contact Info) Description 01/10/2022 Procedure Pass [facility], [address] [address] Social History Tobacco Use Types Packs/Day Years [...] st Contact Info) Description 12/08/2024 Procedure Pass [address] [place] [address] 01/16/2026 3:00 PM EDT Appointment [address] [place] [address] Catarina Michaud FNP [address] [place] [address] [address] [place] [address] [email or web address] documented as of this encounter Visit Diagnoses Not on filedocumented in this encounter Additional Health Concerns Assessment Noted Time PHQ-2 Depression Total Score: 0 01/09/20 22 5:14 PM EST documented as of this encounter Care Teams Computer Systems Technician Relationship Specialty Start Date End Date Solo Holt MD [address] [place], [place] [address] [place] [address] [email or web address] PCP - General Family Medicine 09/17/17 01/27/22 Catarina Michaud FNP [address] [place] [address] [place] [address] PCP - General Family Medicine 01/28/22 Hayder Reyna DO [address] [place] [address] 7 [place] [address] [email or web address] Historical LMR Provider 08/31/17 Christopher Roger MD [address] [place] [address] Historical LMR Provider 08/31/17 Catarina Michaud FNP [address] [place] [address] 7 [place] [address] [email or web address] Historical LMR Provider 08/31/17 Bam Ng MD [address] [place] [address], [address] [place] [address] [email or web address] Historical LMR Provider 08/31/17 Solo Holt MD [address] [place] [address] [address] [place] [address] [email or web address] Historical LMR Provider 08/31/17 documented as of this encounter Additional Source Comments The information contained in this document represents components of the legal health record. It is not the complete legal health record.[facility]
--- OUTSIDE RECORDS SUMMARY | 2025-11-01 16:21 | XMS_ITS | Patient Health Record ---
Author Organization [employer] [facility] Address [address] [place] [address] Care Team Providers Care Sewing Machine Repairer Name Role Phone NO PCP, NONE Primary [...] Coverage End Date [employer]UE CROSS [id number] [place] [phone] [id number] VillafanaAdriana candelario Self - patient is the insured Medical (General) History Medical History History ICD Code History of : No Chronic health problems* Surgical History Surgery Date(Month/Year) Hospitalization History Reason Date(Month/Year)
--- OUTSIDE RECORDS SUMMARY | 2025-11-01 16:21 | XMS_ITS | Encounter Summary ---
Author Organization [facility] Address [address] [place] [address] Phone Care Team Providers Care Section Hand Helper Name Role Phone Hayder Reyna DO Unavailable Christopher Roger MD Unavailable Catarina MichaudP Unavailable [phone] Bam Ng MD Unavailable [phone] Solo Holt MD Unavailable [phone] Catarina Michaud [facility] Primary Care Provider Encounter Details Date Type Department Care Team (Late st Contact Info) Description 01/18/2023 Procedure Pass [facility], [address] [address] Social History Tobacco Use Types Packs/Day Years [...] Contact Info) Description 12/08/2024 Procedure Pass [address] [place] [address] 01/16/2026 3:00 PM EDT Appointment [address] [place] [address] Catarina Michaud FNP 234 [facility] 7 [place] [address] [email or web address] documented as of this encounter Visit Diagnoses Not on filedocumented in this encounter Additional Health Concerns Assessment Noted Time PHQ-2 Depression Total Score: 0 01/09/20 22 5:14 PM EST documented as of this encounter Care Teams Section Hand Helper Relationship Specialty Start Date End Date Catarina Michaud FNP [address] [place] [address] [place] [address] PCP - General Family Medicine 01/28/22 Hayder Reyna DO [address] [place] [address] Historical LMR Provider 08/31/17 Christopher Roger MD [address] [place] [address] Historical LMR Provider 08/31/17 Catarina Michaud FNP [address] [place] [address] [place] [address] Historical LMR Provider 08/31/17 Bam Ng MD [address] [place] [address] [email or web address] Historical LMR Provider 08/31/17 Solo Holt MD [address] [place] [address] [address] [place] [phone] [email or web address] Historical LMR Provider 08/31/17 documented as of this encounter Additional Source Comments The information contained in this document represents components of the legal health record. It is not the complete legal health record.[facility]
--- OUTSIDE RECORDS SUMMARY | 2025-11-01 16:22 | XMS_ITS | Encounter Summary ---
Author Organization [facility] Address [address] [place] [address] Phone Care Team Providers Care Criminology Professor Name Role Phone Axel Hayder Meng DO Unavailable Christopher Roger MD Unavailable Catarina MichaudP Unavailable [phone] Bam Ng MD Unavailable [phone] Solo Holt MD Unavailable Catarina Michaud [facility] Primary Care Provider [phone] Encounter Details Date Type Department Care Team (Late st Contact Info) Description 12/01/2023 Procedure Pass [facility] - [address] [place] [address] Social History Tobacco Use Types Packs/Day Years [...] high school, GED, job training, learning the Swedish language, technical skills, or developing parenting skills)? [...] Contact Info) Description 12/08/2024 Procedure Pass [address] [place] [address] 01/16/2026 3:00 PM EDT Appointment [address] [place] [address] Catarina Michaud, GUEST ROOM ATTENDANT [address] [facility], [address] [place] [address] documented as of this encounter Visit Diagnoses Not on filedocumented in this encounter Additional Health Concerns Assessment Noted Time PHQ-2 Depression Total Score: 0 03/27/20 23 2:03 PM EDT documented as of this encounter Care Teams Criminology Professor Relationship Specialty Start Date End Date Catarina Michaud, GUEST ROOM ATTENDANT [address] [place] [address] [address] [place] [address] PCP - General Family Medicine 01/28/22 Hayder Reyna DO [address] [place] [address] [address] [place] [address] [email or web address] Historical LMR Provider 08/31/17 Christopher Roger MD [address] [place] [address] Historical LMR Provider 08/31/17 Catarina Michaud Bhavani, GUEST ROOM ATTENDANT [address] [place] [address] [place] [address] Historical LMR Provider 08/31/17 Bam Ng MD [address] [place] [address] Historical LMR Provider 08/31/17 Solo Holt MD [address] [place], [place] [address] [place] [address] [email or web address] Historical LMR Provider 08/31/17 documented as of this encounter Additional Source Comments The information contained in this document represents components of the legal health record. It is not the complete legal health record.[facility]
== END 2025-11-01 15:41 | disposition home or self-care (01) ==
LOC: HO.HOS 15:04
PROVIDERS: PCP Nurse Practitioner Family; Visit Provider Orthopaedic Surgery
DX: M17.12 Unilateral primary osteoarthritis, left knee (principal)
CPT/HCPCS: 20610

== ENCOUNTER → 2025-11-01 15:03 | Outpatient (BNVA) | payer OTHER, SELFPAY | PROVIDERS: PCP Nurse Practitioner Family; Visit Provider Orthopaedic Surgery | DX: M17.12 Unilateral primary osteoarthritis, left knee (principal) | CPT/HCPCS: 20610; J2003; J7323 ==

== ENCOUNTER 2025-11-07 14:47 | Outpatient (AMB) | payer OTHER, SELFPAY ==
--- NOTE | 2025-11-07 14:52 | MHC.OFFVIS ---
Intake Visit Reasons: INJ- Lt knee Euflexxa #3 Intake Note: Adriana is a 60 year old female who presents with complaints of left knee pain. She states that she has gotten mild relief from the 1st 2 Euflexxa injections. She continues with her home exercise program. Allergies No Known Allergies Allergy (Verified 04/26/25 15:06) Medication List - Last Reconciled 11/07/25 by Francesco Sullivan MD alprazolam 0.5 mg PO BEDTIME PRN bupropion HCl XL 150 mg PO DAILY celecoxib (Celebrex) 200 mg PO DAILY PRN estradiol 1 patch transdermal QWEEK levothyroxine 25 mcg PO QAM [facility] Medical History Hypothyroid Osteoarthritis GERD (gastroesophageal reflux disease) Anxiety and depression History of colitis Surgical History H/O colonoscopy Family History Father HTN (hypertension) Diabetes Maternal Grandfather Colon cancer Social History Household Members: None Are you a primary technical healthcare consultant to a significant other at home: No Do you presently have visiting nurse or other home services: No Alcohol intake: current Alcohol intake frequency: holidays/special occasions only Patient Tobacco Use Status: Never used Tobacco Advance Directives Date on File: 04/11/21 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 Extrem Other: Left knee examination shows a minimal effusion, palpable crepitus with range of motion, pain with range of motion, no instability Office Procedures AMB Joint Injection/Aspiration Joint Injection/Aspiration Primary Site: Left Knee Prep: site was prepped using aseptic technique Injected: 20 mg of, Euflexxa, with 3 mL of and 1% plain Lidocaine Procedure: The patient tolerated the procedure well Coding 64558 - Large joint Procedure code (CPT) selection complete Assessment & Plan Assessment & Plan (1) Osteoarthritis of left knee: Code(s): M17.12 - Unilateral primary osteoarthritis, left knee Category: Medical Plan Ms. Bright presents with left knee pain due to osteoarthritis. The risks and benefits of a 3rd Euflexxa injection were discussed at length with the patient. The patient wished to proceed. She tolerated the injection well. She will continue with her home exercise program. She will contact me prior to her follow-up appointment in 3 months should any questions or concerns arise. Feel free to call me at any time should questions regarding her orthopedic management arise. Orders: Orders AMB Joint Injection/Aspiration Today M17.12 - Unilateral primary osteoarthritis, left knee Coding Level of Care Code Procedure Only Diagnoses Osteoarthritis of left knee M17.12 CPT Codes Coding - 86615 Large joint: 13865 - Large joint ([id number])
--- OUTSIDE RECORDS SUMMARY | 2025-11-07 17:08 | XMS_ITS | Encounter Summary ---
Author Organization [facility] Address [address] [place] [address] Phone Care Team Providers Care Materials Branch Chief Name Role Phone Hayder Reyna DO Unavailable Eva Miller CNM Unavailable Christopher Roger MD Unavailable Shelby Browning TELECOMMUNICATOR SUPERVISOR Unavailable Johanny Perez SECRET SERVICE AGENT Unavailable [phone] Juice Spicer MD Unavailable Shena Greenberg SECRET SERVICE AGENT Unavailable Catarina Michaud PRODUCTION AIDE Unavailable Flavia Velásquez MD Unavailable [phone] Bam Ng MD Unavailable [phone] Db Drummond MD Unavailable Terry Eric MD Unavailable Solo Holt MD Unavailable Solo Holt MD Primary Care Provider [phone] Solo Holt MD Unavailable Catarina MichaudP Primary Care Provider Encounter Details Date Type Department Care Team (Late st Contact Info) Description 07/29/2020 Procedure Pass [address] [place] [address] Social History Tobacco Use Types Packs/Day Years [...] Upcoming Encounters Date Type Department Care Team ([facility] st Contact Info) Description 12/08/2024 Procedure Pass [address] [place] [address] 01/16/2026 3:00 PM EDT Appointment [address] [place] [address] Catarina Michaud FNP [address] [facility], [address] [place] [address] [email or web address] documented as of this encounter Visit Diagnoses Not on filedocumented in this encounter Additional Health Concerns Infection Onset Date Last Indicated Resolved Time CoV-Risk 09/14/2020 09/15/2020 09/28/2020 1:25 AM EST Assessment Noted Time PHQ-2 Depression Total Score: 0 10/08/20 17 4:34 PM EST documented as of this encounter Care Teams Materials Branch Chief Relationship Specialty Start Date End Date Solo Holt MD [address] [place] [address] [address] [place] [address] [email or web address] PCP - General Family Medicine 09/17/17 01/27/22 Catarina Michaud FNP [address] [place] [address] 7 [place] [address] [email or web address] PCP - General Family Medicine 01/28/22 Hayder Reyna DO [address] [place] [address] 7 [place] [address] [email or web address] Historical LMR Provider 08/31/17 Eva Miller CNM [address] [place] [address] Historical LMR Provider 08/31/17 2 Christopher Roger MD [address] [address] [email or web address] Historical LMR Provider 08/31/17 Shelby Browning, TELECOMMUNICATOR SUPERVISOR [address] [place] [address], 2nd [place] [address] [email or web address] Historical LMR Provider 08/31/17 11/17/21 Johanny Perez SECRET SERVICE AGENT 30 [place] [address] [email or web address] Historical LMR Provider 08/31/17 11/17/21 Juice Spicer MD [address] [place] [address] [email or web address] Historical LMR Provider 08/31/17 2 Shena Greenberg, SECRET SERVICE AGENT [address] [place] [address] [email or web address] Historical LMR Provider 08/31/17 2 Catarina Michaud FNP 234 [facility] 7 [place] [address] [email or web address] Historical LMR Provider 08/31/17 Flavia Velásquez MD [address] [place] [address] Historical LMR Provider 08/31/17 2 Bam gN MD [address] [place] [address] [email or web address] Historical LMR Provider 08/31/17 Db Drummond MD [address] [place] [address] Historical LMR Provider 08/31/17 2 Terry Eric MD [address] [place] [address] Historical LMR Provider 08/31/17 2 Solo Holt MD [address] [place] [address] [address] [place] [address] [email or web address] Historical LMR Provider 08/31/17 Solo Holt MD [address] [place] [address] [address] [place] [address] [email or web address] Insurance Assigned Provider 06/13/1910/10 documented as of this encounter Additional Source Comments The information contained in this document represents components of the legal health record. It is not the complete legal health record.[facility]
--- OUTSIDE RECORDS SUMMARY | 2025-11-07 17:08 | XMS_ITS | Encounter Summary ---
Author Organization [facility] Address [address] [place] [address] Phone Care Team Providers Care Small Business Sales Representative Name Role Phone Hayder Reyna DO Unavailable Eva Miller CNM Unavailable Christopher Roger MD Unavailable Shelby Browning METAL SPINNER Unavailable Johanny Perez JOINTER SUBMARINE CABLE Unavailable [phone] Juice Spicer MD Unavailable Shena Greenberg JOINTER SUBMARINE CABLE Unavailable Catarina Michaud TRACK ANNOUNCER Unavailable Flavia Velásquez MD Unavailable [phone] Bam Ng MD Unavailable [phone] Db Drummond MD Unavailable Terry Eric MD Unavailable Solo Holt MD Unavailable Solo Holt MD Primary Care Provider [phone] Solo Holt MD Unavailable Catarina Michaud TRACK ANNOUNCER Primary Care Provider [phone] Encounter Details Date Type Department Care Team (Late st Contact Info) Description 04/29/[address] [facility] [address] [place] [address] Bam Ng MD 22 [facility], [address] [place] [address] [email or web address] Breast screening Social History Tobacco Use Types [...] st Contact Info) Description 12/08/2024 Procedure Pass [address] [place] [address] 01/16/2026 3:00 PM EDT Appointment [address] [place] [address] Catarina Michaud FNP [address] [place] [address], [address] [place] [address] [email or web address] documented as of this encounter Results * [...] documented as of this encounter Care Teams Small Business Sales Representative Relationship Specialty Start Date End Date Solo Holt MD [address] [place] [address] [address] [place] [address] [email or web address] PCP - General Family Medicine 09/17/17 01/27/22 Catarina Michaud FNP [address] [place] [address], [address] [place] [address] [email or web address] PCP - General Family Medicine 01/28/22 Hayder Reyna DO 234 [facility] 7 [place] [address] [email or web address] Historical LMR Provider 08/31/17 Eva Miller CNM 30 [place] [address] Historical LMR Provider 08/31/17 2 Christopher Roger MD [address] [address] [email or web address] Historical LMR Provider 08/31/17 Shelby Browning CNP [address] [place] [address], [address] [place] [address] [email or web address] Historical LMR Provider 08/31/17 11/17/21 Johanny Perez NP [address] [place] [address] [email or web address] Historical LMR Provider 08/31/17 11/17/21 Juice Spicer MD [address] [place] [address] [email or web address] Historical LMR Provider 08/31/17 2 Shena Greenberg JOINTER SUBMARINE CABLE [address] [place] [address] [email or web address] Historical LMR Provider 08/31/17 2 Catarina Michaud FNP 234 [facility] 7 [place] [address] [email or web address] Historical LMR Provider 08/31/17 Flavia Velásquez MD [address], [place] [address] Historical LMR Provider 08/31/17 2 Bam Ng MD [address] [place] [address] [email or web address] Historical LMR Provider 08/31/17 Db Drummond MD [address] [place] [phone] Historical LMR Provider 08/31/17 2 Terry Eric MD [address] [place] [address] Historical LMR Provider 08/31/17 2 Solo Holt MD [address] [place] [address] [address] [place] [address] [email or web address] Historical LMR Provider 08/31/17 Solo Holt MD 234 [facility] [address] [place] [phone] [email or web address] Insurance Assigned Provider 06/13/1910/10 documented as of this encounter Additional Source Comments The information contained in this document represents components of the legal health record. It is not the complete legal health record.[facility]
--- OUTSIDE RECORDS SUMMARY | 2025-11-07 17:08 | XMS_ITS | Patient Health Record ---
Author Organization [employer] [facility] Address [address] [place] [address] Care Team Providers Care Organic Preparation Technician Name Role Phone NO PCP, NONE [...] Coverage End Date BLUE CROSS [address] [place] [phone] [id number] VillafanaAdriana candelario Self - patient is the insured Medical (General) History Medical History History ICD Code History of : No Chronic health problems* Surgical History Surgery Date(Month/Year) Hospitalization History Reason Date(Month/Year)
--- OUTSIDE RECORDS SUMMARY | 2025-11-07 17:08 | XMS_ITS | Patient Health Record ---
Author Organization [facility] Address [address] [facility] [place] [address] Care Team Providers Care Validation Technician Name Role Phone Solo Holt MD Primary Care Provider Unavail able Black, Cecilia Unavailable [phone] Reason For Referral No Information Problems Problem Type SNOMED Code ICD Code Onset Dates Problem Status W/U Status Risk Notes Problem Hallux valgus (790873534) Hallux Valgus (735.0) Active confirmed Problem Hammer toe (251867041) Hammer toe (735.4) Active confirmed Problem Pain in limb (22273633) Pain in Limb (729.5) Active confirmed Plan Of Treatment Pending Test Test Name Order Date X ray : Foot, left 3V 06/28/2013 X ray : Foot, right 3V 06/28/2013 Insurance Providers Payer Name Payer Address Payer Phone Subscriber Number Group Number Insured Name Patient Relationship to Insured Coverage Start Date Coverage End Date [facility] [address] [facility] [address] [phone] [id number] Adriana Bright Self - patient is the insured Medical (General) History Medical History History ICD Code chicken pox Surgical History Surgery Date(Month/Year) section 12/1988
--- OUTSIDE RECORDS SUMMARY | 2025-11-07 17:08 | XMS_ITS | Encounter Summary ---
Author Organization [facility] Address [address] [place] [address] [place] [address] Phone Care Team Providers Care Travel Director Name Role Phone Axel Hayder Meng DO Unavailable Christopher Roger MD Unavailable Catarina MichaudP Unavailable [phone] Bam Ng MD Unavailable YanetSolo sharma MD Unavailable Catarina Michaud [facility] Primary Care Provider Encounter Details Date Type Department Care Team (Latest Contact Info) Description 02/26/2023 Transcribe Orders Virtual Department [address] [place] [address] Catarina Michaud [facility] 234 [facility], [facility] 7 [place] [address] [email or web address] Abnormal mammogram of right breast (Primary Dx) [...] st Contact Info) Description 12/08/2024 Procedure Pass [address] [place] [address] 01/16/2026 3:00 PM EDT Appointment [address] [place] [address] Catarina Michaud, DIGITAL CONTENT SPECIALIST [address] [facility], [address] [place] [address] [email or web address] documented as of this encounter Results * [...] There are scattered fibroglandular densities. Catarina Michaud DIGITAL CONTENT SPECIALIST IMG MG EXAMS Final Result documented in this encounter Visit Diagnoses Diagnosis Abnormal mammogram of right breast- Primary Abnormal mammogram of right breast documented in this encounter Additional Health Concerns Assessment Noted Time PHQ-2 Depression Total Score: 0 01/09/20 5:14 PM EST documented as of this encounter Care Teams Travel Director Relationship Specialty Start Date End Date Catarina Michaud FNP [address] [place] [address] [email or web address] PCP - General Family Medicine 01/28/22 Hayder Reyna DO [address] [place] [address] [email or web address] Historical LMR Provider 08/31/17 Christopher Roger MD [address] [place] [address] [email or web address] Historical LMR Provider 08/31/17 Catarina Michaud FNP [address] [place] [address] [email or web address] Historical LMR Provider 08/31/17 Bam Ng MD [address] [place], [place] [address] [address] [email or web address] Historical LMR Provider 08/31/17 Solo Holt MD [address] [place], [place] [address] [place] [address] [email or web address] Historical LMR Provider 08/31/17 documented as of this encounter Additional Source Comments The information contained in this document represents components of the legal health record. It is not the complete legal health record.[facility]
--- OUTSIDE RECORDS SUMMARY | 2025-11-07 17:08 | XMS_ITS | Encounter Summary ---
Author Organization [facility] Address [address] [place] [address] Phone Care Team Providers Care Cake Maker Name Role Phone PeñaHayder martin DO Unavailable Christopher Roger MD Unavailable Catarina Michaud Unavailable Bam Ng MD Unavailable [phone] Solo Holt MD Unavailable Solo Holt MD Primary Care Provider [phone] Catarina Michaud Primary Care Provider [phone] Encounter Details Date Type Department Care Team (Late st Contact Info) Description 01/10/2022 Procedure Pass [facility], [address] [address] Social History Tobacco Use Types Packs/Day Years [...] st Contact Info) Description 12/08/2024 Procedure Pass [address] [place] [address] 01/16/2026 3:00 PM EDT Appointment [address] [place] [address] Catarina Michaud FNP [address] [place] [address] [address] [place] [address] [email or web address] documented as of this encounter Visit Diagnoses Not on filedocumented in this encounter Additional Health Concerns Assessment Noted Time PHQ-2 Depression Total Score: 0 01/09/20 22 5:14 PM EST documented as of this encounter Care Teams Cake Maker Relationship Specialty Start Date End Date Solo Holt MD [address] [place], [place] [address] [place] [address] [email or web address] PCP - General Family Medicine 09/17/17 01/27/22 Catarina Michaud FNP [address] [place] [address] [place] [address] PCP - General Family Medicine 01/28/22 Hayder Reyna DO [address] [place] [address] 7 [place] [address] [email or web address] Historical LMR Provider 08/31/17 Christopher Roger MD [address] [place] [address] Historical LMR Provider 08/31/17 Catarina Michaud FNP [address] [place] [address] 7 [place] [address] [email or web address] Historical LMR Provider 08/31/17 Bam Ng MD [address] [place] [address], [address] [place] [address] [email or web address] Historical LMR Provider 08/31/17 Solo Holt MD [address] [place] [address] [address] [place] [address] [email or web address] Historical LMR Provider 08/31/17 documented as of this encounter Additional Source Comments The information contained in this document represents components of the legal health record. It is not the complete legal health record.[facility]
--- OUTSIDE RECORDS SUMMARY | 2025-11-07 17:08 | XMS_ITS | Encounter Summary ---
Author Organization [facility] Address [address] [place] [address] Phone Care Team Providers Care Nursing Staff Development Coordinator Name Role Phone Hayder Reyna DO Unavailable Eva Miller CNM Unavailable Christopher Roger MD Unavailable Shelby Browning RENEWALS MANAGER Unavailable Johanny Perez ACID ETCH OPERATOR Unavailable [phone] Juice Spicer MD Unavailable Shena Greenberg ACID ETCH OPERATOR Unavailable Catarina Michaud DIVIDEND DEPOSIT ENTRY CLERK Unavailable Flavia Velásquez MD Unavailable [phone] Bam Ng MD Unavailable [phone] Db Drummond MD Unavailable Terry Eric MD Unavailable Solo Holt MD Unavailable Solo Holt MD Primary Care Provider [phone] Solo Holt MD Unavailable Catarina MichaudP Primary Care Provider [phone] Encounter Details Date Type Department Care Team (Late st Contact Info) Description 10/12/2020 Procedure Pass OR Admitting Dept - Virtual Department [address] [place] [address] Social History Tobacco Use Types Packs/Day Years [...] Upcoming Encounters Date Type Department Care Team ([facility] st Contact Info) Description 12/08/2024 Procedure Pass [address] [place] [address] 01/16/2026 3:00 PM EDT Appointment [address] [place] [address] Catarina Michaud FNP 234 [facility] 7 [place] [address] [email or web address] documented as of this encounter Visit Diagnoses Not on filedocumented in this encounter Additional Health Concerns Assessment Noted Time PHQ-2 Depression Total Score: 0 10/08/20 17 4:34 PM EST documented as of this encounter Care Teams Nursing Staff Development Coordinator Relationship Specialty Start Date End Date Solo Holt MD [address] [place] [address] [address] [place] [phone] [email or web address] PCP - General Family Medicine 09/17/17 01/27/22 Catarina Michaud FNP [address] [place] [address] 7 [place] [address] [email or web address] PCP - General Family Medicine 01/28/22 Hayder Reyna DO [address] [place] [address] 7 [place] [address] [email or web address] Historical LMR Provider 08/31/17 Eva Miller CNM [address] [place] [address] Historical LMR Provider 08/31/17 2 Christopher Roger MD [address] [address] [email or web address] Historical LMR Provider 08/31/17 Shelby Browning CNP [address] [place] [address], [address] [place] [address] [email or web address] Historical LMR Provider 08/31/17 11/17/21 Johanny Perez NP 30 [place] [address] [email or web address] Historical LMR Provider 08/31/17 11/17/21 Juice Spicer MD [address] [place] [address] [email or web address] Historical LMR Provider 08/31/17 2 Shena Greenberg NP 21 [place] [address] [email or web address] Historical LMR Provider 08/31/17 2 Catarina Michaud FNP 234 [facility] 7 [place] [address] [email or web address] Historical LMR Provider 08/31/17 Flavia Velásquez MD [address] [place] [address] Historical LMR Provider 08/31/17 2 Bam Ng MD [address] [place] [address] [email or web address] Historical LMR Provider 08/31/17 Db Drummond MD [address] [place] [phone] Historical LMR Provider 08/31/17 2 Terry Eric MD [address] [place] [address] Historical LMR Provider 08/31/17 2 Solo Holt MD [address] [place] [address] [address] [place] [address] [email or web address] Historical LMR Provider 08/31/17 Solo Holt MD [address] [facility] [address] [place] [phone] [email or web address] Insurance Assigned Provider 06/13/1910/10 documented as of this encounter Additional Source Comments The information contained in this document represents components of the legal health record. It is not the complete legal health record.[facility]
--- OUTSIDE RECORDS SUMMARY | 2025-11-07 17:08 | XMS_ITS | Encounter Summary ---
Author Organization [facility] Address [facility] [address] [place] [address] Phone Care Team Providers Care Television Reporter Name Role Phone Hayder Reyna Yusra BETH Unavailable Christopher Roger MD Unavailable Catarina MichaudP Unavailable [phone] Bam Ng MD Unavailable Solo Holt MD Unavailable [phone] Catarina Michaud [facility] Primary Care Provider Encounter Details Date Type Department Care Team (Late st Contact Info) Description 03/18/2022 Ancillary Orders [facility] [address] [place] [address] Nereyda Schwab MD [address] [place] [address] Orthopedics & Sports Medicine, [facility] [place] [address] [email or web address] Right knee pain Social History [...] Contact Info) Description 12/08/2024 Procedure Pass [address] [place] [address] 01/16/2026 3:00 PM EDT Appointment [address] [place] [address] CharuCatarina lees Bhavani, TURRET PRESS OPERATOR 234 [facility], [address] [place], [place] [address] [email or web address] documented as of this encounter Results [...] documented as of this encounter Care Teams Television Reporter Relationship Specialty Start Date End Date Catarina Michaud FNP 234 [facility], [address] [place], [place] [address] [email or web address] PCP - General Family Medicine 01/28/22 Hayder Reyna DO 234 [facility], [address] [place], [place] [address] [email or web address] Historical LMR Provider 08/31/17 Christopher Roger MD [address] [place] [address] [email or web address] Historical LMR Provider 08/31/17 Catarina Michaud FNP [address] [place] [address] [email or web address] Historical LMR Provider 08/31/17 Bam Ng MD [address] [place] [address] [email or web address] Historical LMR Provider 08/31/17 Solo Holt MD [address] [place], [place] [address] [place] [address] [email or web address] Historical LMR Provider 08/31/17 documented as of this encounter Additional Source Comments The information contained in this document represents components of the legal health record. It is not the complete legal health record.[facility]
--- OUTSIDE RECORDS SUMMARY | 2025-11-07 17:08 | XMS_ITS | Encounter Summary ---
Author Organization [facility] Address [address] [place] [address] Phone Care Team Providers Care Information Clerk Name Role Phone Hayder Reyna DO Unavailable Christopher Roger MD Unavailable Catarina MichaudP Unavailable Bam Ng MD Unavailable [phone] Solo Holt MD Unavailable [phone] Catarina Michaud [facility] Primary Care Provider Encounter Details Date Type Department Care Team (Late st Contact Info) Description 01/18/2023 Procedure Pass [facility], [address] [address] Social History Tobacco Use Types Packs/Day Years [...] st Contact Info) Description 12/08/2024 Procedure Pass [address] [place] [address] 01/16/2026 3:00 PM EDT Appointment [address] [place] [address] Catarina Michaud FNP 234 [facility] 7 [place] [address] [email or web address] documented as of this encounter Visit Diagnoses Not on filedocumented in this encounter Additional Health Concerns Assessment Noted Time PHQ-2 Depression Total Score: 0 01/09/20 22 5:14 PM EST documented as of this encounter Care Teams Information Clerk Relationship Specialty Start Date End Date Catarina Michaud FNP [address] [place] [address] [place] [address] PCP - General Family Medicine 01/28/22 Hayder Reyna DO [address] [place] [address] Historical LMR Provider 08/31/17 Christopher Roger MD [address] [place] [address] Historical LMR Provider 08/31/17 Catarina Michaud FNP [address] [place] [address] [place] [address] Historical LMR Provider 08/31/17 Bam Ng MD [address] [place] [address] [email or web address] Historical LMR Provider 08/31/17 Solo Holt MD [address] [place] [address] [address] [place] [phone] [email or web address] Historical LMR Provider 08/31/17 documented as of this encounter Additional Source Comments The information contained in this document represents components of the legal health record. It is not the complete legal health record.[facility]
--- OUTSIDE RECORDS SUMMARY | 2025-11-07 17:08 | XMS_ITS | Clinical Summary ---
Author Organization [facility] Address [address] [place] [address] Phone Care Team Providers Care Bakery Helper Name Role Phone Hayder Reyna Unavailable Christopher Roger MD Unavailable Catarina Michaud [facility] Unavailable [phone] Bam Ng MD Unavailable [phone] Solo Holt MD Unavailable Catarina Michaud [facility] Primary Care Provider Allergies Active [...] st Contact Info) Description 12/08/2024 Procedure Pass [address] [place] [address] 01/16/2026 3:00 PM EDT Appointment [address] [place] [address] Catarina Michaud, [address], [address] [place] [address] [email or web address] Health Maintenance Due Date Last Done Comments [...] - 5.00 uIU/mL 09/16/2025 7:09 PM EST [facility] Blood 09/16/2025 2:57 PM EST 09/16/2025 2:57 PM EST [facility] LAB BLOOD BKR ORDERABLES Suma l Result Performing Organization Address [facility]/ZIP Co de Phone Number [address] [address] * Hepatitis C antibody, qualitative (04/29/2024 7:15 AM EDT) HCV NON-REACTIV E NON-REACTI VE [facility] Blood 04/29/2024 7:15 AM EDT 04/29/2024 7:53 AM EDT [facility] LAB BLOOD BKR ORDERABLES Suma l Result Performing Organization Address City/[facility]/ZIP Co de Phone Number [address] [address] * (ABNORMAL) Lipid panel (04/29/2024 7:15 AM EDT) HDL 69 mg/dL [facility] Comment: Interpretation <40 mg/dL: Low HDL cholesterol (major risk factor for CHD) Greater than or equal to 60 mg/dL: High HDL cholesterol ( negative risk factor for CHD) HDL - cholesterol is affected by a number of factors, e.g. smoking, excerise, hormones, sex and age. CHOLESTEROL 186 0 - 240 mg/dL [facility] TRIGLYCERIDES 59 30 - 160 mg/dL [facility] LDL 105 50 - 129 mg/dL [facility] Comment: LDL levels in terms of risk for coronary heart disease: <100 mg/dL: Optimal 100-129 mg/dL: Near or above optimal 130-159 mg/dL: Borderline high 160-189 mg/dL: High >190 mg/dL: Very High CARDIAC RISK RATIO 2.7(L) 3.3 - 4.4 C [facility] Blood 04/29/2024 7:15 AM EDT 04/29/2024 7:53 AM EDT us Catarina Michaud WRITER PRODUCER LAB BLOOD BKR ORDERABLES Suma l Result Performing Organization Address City/State/[facility] Co de Phone Number [facility] [address] [place] [address] * BI MAMMOGRAM SCREENING WITH TOMOSYNTHESIS WITH [...] be notified of the results and recommendations. [facility] Bhavani Zurba WRITER PRODUCER IMG MG EXAMS Final Result * COLONOSCOPY FOR RESULT ENTRY ONLY (04/11/2021) Historical Provider HEALTH MAINTENANCE Final Result * Outside Glucose,Fasting (01/09/2017) Glucose, fasting - External 88 65 - 99 mg/dL Result [facility] Provider LAB BLOOD ORDERABLES Suma l Result * OUTSIDE HIV TEST (02/22/2014) HIV - External Neg Result [facility] Provider LAB BLOOD ORDERABLES Suma l Result from Last 3 Months or Most Recently Relevant to Health Maintenance Insurance [address] [place] [address] [place] [address] [place] [address] [facility] Advance Directives For more information, please contact: [phone] (9AM - 5PM Jenna/[facility], Friday-Friday) Documents on File Type Date Recorded Patient Automotive Assembler Expl anation Healthcare Proxy 10/17/2020 2:13 PM * Full Code (Latest Code Status on File) Date Activated Date Inactivated Comments 10/12/2020 8:47 AM Question Answer Comments Code Status Confirmed With: Patient Care Teams Bakery Helper Relationship Specialty Start Date End Date Catarina Michaud FNP [address] [place] [address] PCP - General Family Medicine 01/28/22 Hayder Reyna DO [address] [place] [address] Historical LMR Provider 08/31/17 Christopher Roger MD [address] [place] [address] Historical LMR Provider 08/31/17 Catarina Michaud FNP [address] [place] [address] Historical LMR Provider 08/31/17 Bam Ng MD [address] [place] [address] [email or web address] Historical LMR Provider 08/31/17 Solo Holt MD [address] [place] [address] [address] [place] [phone] [email or web address] Historical LMR Provider 08/31/17 Additional Source Comments The information contained in this document represents components of the legal health record. It is not the complete legal health record.[facility]
--- OUTSIDE RECORDS SUMMARY | 2025-11-07 17:08 | XMS_ITS | Encounter Summary ---
Author Organization [facility] Address [address] [place] [address] Phone Care Team Providers Care Dress Marker Name Role Phone Axel Hayder Meng DO Unavailable Christopher Roger MD Unavailable Catarina MichaudP Unavailable [phone] Bam Ng MD Unavailable [phone] Solo Holt MD Unavailable Catarina Michaud [facility] Primary Care Provider [phone] Encounter Details Date Type Department Care Team (Late st Contact Info) Description 12/01/2023 Procedure Pass [facility] - [address] [place] [address] Social History Tobacco Use Types Packs/Day Years [...] high school, GED, job training, learning the Occitan language, technical skills, or developing parenting skills)? [...] Contact Info) Description 12/08/2024 Procedure Pass [address] [place] [address] 01/16/2026 3:00 PM EDT Appointment [address] [place] [address] Catarina Michaud, RESIDENTIAL PROGRAM WORKER [address] [facility], [address] [place] [address] documented as of this encounter Visit Diagnoses Not on filedocumented in this encounter Additional Health Concerns Assessment Noted Time PHQ-2 Depression Total Score: 0 03/27/20 23 2:03 PM EDT documented as of this encounter Care Teams Dress Marker Relationship Specialty Start Date End Date Catarina Michaud, RESIDENTIAL PROGRAM WORKER [address] [place] [address] [address] [place] [address] PCP - General Family Medicine 01/28/22 Hayder Reyna DO [address] [place] [address] [address] [place] [address] [email or web address] Historical LMR Provider 08/31/17 Christopher Roger MD [address] [place] [address] Historical LMR Provider 08/31/17 Catarina Michaud Bhavani, RESIDENTIAL PROGRAM WORKER [address] [place] [address] [place] [address] Historical LMR Provider 08/31/17 Bam Ng MD [address] [place] [address] Historical LMR Provider 08/31/17 Solo Holt MD [address] [place], [place] [address] [place] [address] [email or web address] Historical LMR Provider 08/31/17 documented as of this encounter Additional Source Comments The information contained in this document represents components of the legal health record. It is not the complete legal health record.[facility]
== END 2025-11-07 15:14 | disposition home or self-care (01) ==
LOC: HO.HOS 14:47
PROVIDERS: PCP Nurse Practitioner Family; Visit Provider Orthopaedic Surgery
DX: M17.12 Unilateral primary osteoarthritis, left knee (principal)
CPT/HCPCS: 20610

== ENCOUNTER → 2025-11-07 14:47 | Outpatient (BNVA) | payer OTHER, SELFPAY | PROVIDERS: PCP Nurse Practitioner Family; Visit Provider Orthopaedic Surgery | DX: M17.12 Unilateral primary osteoarthritis, left knee (principal) | CPT/HCPCS: 20610; J2003; J7323 ==